=== PATIENT | male | born 1955 | race Caucasian/White ===

== ENCOUNTER → 2018-03-23 11:30 | Outpatient (CLI) | payer OTHER, SELFPAY ==
[2018-03-23 13:09] LABS: INR 1.4 (0.9-1.3); Prothrombin Time 15.6 SECONDS (10.1-12.7)
== END ==
PROVIDERS: PCP Family Medicine; Visit Provider Family Medicine
DX: Z79.01 Long term (current) use of anticoagulants (principal)
CPT/HCPCS: 36415; 85610

== ENCOUNTER → 2018-03-28 14:08 | Outpatient (CLI) | payer OTHER, SELFPAY ==
--- NOTE | 2018-03-28 | DI.CT.S_ITS ---
PROCEDURE: CT KIDNEY URETER BLADDER (KUB) INDICATIONS: 62 year-old male with right flank pain. TECHNIQUE: Noncontrast 5 mm thick sections acquired from the diaphragms to the symphysis. 5 mm thick coronal and sagittal reformats were then performed. For radiation dose reduction, the following was used: automated exposure control, adjustment of mA and/or kV according to patient size. COMPARISON: Outside Film, CT, CT ABDOMEN PELVIS WITH CONTRAST, 11/23/2017, 10:18. Outside Film, CT, CT ABDOMEN PELVIS WITH/WITHOUT CONTRAST, 07/26/2017, 8:25. [facility], CT, ABDOMEN/PELVIS WITH CONTRAST, 01/07/2017, 12:59. FINDINGS: Image quality: Excellent. Lung bases: Lung bases are clear. Heart size is normal. Urinary system: Both kidneys are normal in size, with the inferior right renal cortical scarring as before. No kidney stones. No hydronephrosis or perinephric fat stranding. Both ureters appear non-dilated throughout their expected courses. Previously noted proximal right ureteral stone is no longer present. Bladder wall thickness is normal; no calcified bladder stones. Other solid organs: Liver is normal in size. Gallbladder wall thickness is normal. Pancreas is normal in contours. Spleen is normal in size. No adrenal nodules. Peritoneum and bowel: Unenhanced bowel loops demonstrate normal wall thickness and caliber. No free fluid or air. Nodes and vessels: No retroperitoneal or mesenteric adenopathy by size criteria. Aorta and inferior vena cava are normal in caliber, with mild aortoiliac atherosclerosis. Abdominal wall: No ventral hernias. Pelvis: No free pelvic fluid. No inguinal hernias or adenopathy. Bones: No suspicious bony lesions. Incidental medial left iliac bone island is unchanged, measuring 1180 Hounsfield units in density. Additional small left femoral head and neck bone island is also unchanged. No vertebral body compression fractures. IMPRESSION: 1. No imaging explanation for right flank pain. Note no kidney stones or hydronephrosis. 2. Inferior right renal cortical scarring as before, consistent with remote pyelonephritis and/or vesicoureteral reflux. Dictated by: El Gutierrez M.D. on 03/28/2018 at 15:09 Approved by: El Gutierrez M.D. on 03/28/2018 at 15:19
== END ==
PROVIDERS: Family Provider Family Medicine; PCP Family Medicine; Visit Provider Urology
DX: R10.9 Unspecified abdominal pain (principal)
CPT/HCPCS: 74176

== ENCOUNTER → 2018-08-28 08:56 | Outpatient (CLI) | payer OTHER, SELFPAY ==
--- NOTE | 2018-08-28 | DI.MRI.S_ITS ---
PROCEDURE: MR KNEE LT WO CON INDICATIONS: OTHER TEAR OF MEDIAL MENISCUS LEFT KNEE TECHNIQUE: Noncontrast sagittal PD fast spin echo and T2 fast spin echo with fat saturation, sagittal 3-D FLASH with fat saturation; coronal T1 spin echo and PD fast spin echo with fat saturation, and axial PD fast spin echo with fat saturation through the knee. COMPARISON: [facility], MR, KNEE WITHOUT CONTRAST, 03/29/2016, 18:04. FINDINGS: Image quality: Excellent. Menisci: Lateral meniscus appears intact. Medial meniscal tear involving the body and posterior horn with abnormal signal extending to the undersurface. Cruciate ligaments: The anterior and posterior cruciate ligaments appear intact. The Medial structures: The medial collateral ligament appears thickened and there is mild soft tissue edema although this is less conspicuous compared to 03/29/16 and previously seen adjacent parameniscal cyst is no longer visualized. The posterior oblique ligament, semimembranosus tendon insertions, oblique popliteal ligament, and meniscocapsular junction appear intact. Mild fluid adjacent to the insertion of the pes anserinus tendon suggesting bursitis, which appears progressed/new since the prior study. Lateral structures: The lateral collateral ligament, long and short heads of the biceps femoris tendon appear intact. The popliteus tendon appears normal; the popliteofibular ligament appears intact. The posterosuperior and anteroinferior popliteomeniscal fascicles appear intact. The arcuate and fabellofibular ligaments appear intact, on either side of the lateral inferior geniculate artery. Iliotibial band appears normal. Anterior structures: The quadriceps and patellar tendons appear intact although there is mild diffuse patellar internal signal change suggesting low-grade tendinopathy. Patellar alignment is normal. No femoral trochlear dysplasia or ventral trochlear prominence. No edema in the infrapatellar fat pad. Bones and cartilage: No bone marrow contusions or fractures. Within the medial compartment, diffuse mild partial thickness loss of the femoral and tibial cartilage without focal defect. Within the lateral compartment, the articular cartilage appears grossly intact. Within the patellofemoral compartment, mild surface fraying of the cartilage overlying the lateral patellar facet. Joint space: No pathologic joint effusion. No Downing's cyst is identified. No intra-articular loose body seen. IMPRESSION: Pes anserinus bursitis, which has developed since prior study. Insertional semimembranosus tendinopathy, which appears progressed. Redemonstration of chronic medial meniscal tear involving the body and posterior horn. Resolution of previously seen parameniscal cyst Probable reactive changes/edema adjacent to the medial collateral ligament versus low-grade MCL sprain. This appears less conspicuous since prior study as discussed above. Mild degenerative joint disease (unchanged). Mild patellar tendinopathy Dictated by: Osman Peterson M.D. on 08/28/2018 at 10:37 Approved by: Osman Peterson M.D. on 08/28/2018 at 10:54
== END ==
PROVIDERS: PCP Family Medicine; Visit Provider Orthopaedic Surgery
DX: M23.222 Derangement of posterior horn of medial meniscus due to old tear or injury, left knee (principal); M70.52 Other bursitis of knee, left knee; M17.12 Unilateral primary osteoarthritis, left knee
CPT/HCPCS: 73721

== ENCOUNTER → 2018-09-05 10:26 | Outpatient (CLI) | payer OTHER, SELFPAY ==
[2018-09-05 11:07] LABS: Add Manual Diff / Slide Review NO; Basophils Percent Auto 0.6 % (0-2); Eosinophils Percent Auto 6.7 % (2-4); Hematocrit 40.1 % (41-53); Hemoglobin 13.6 g/dL (13.5-17.5); Lymphocytes Percent Auto 34.4 % (25-40); Mean Corpuscular Hemoglobin 28.7 PG (26-34); Mean Corpuscular Volume 84.4 fL (80-100); Monocytes Percent Auto 10.4 % (3-14); Neutrophils Absolute Auto 2100 /uL (3000-5900); Neutrophils Percent Auto 47.9 % (50-75); Platelet Count 158 X10^3/uL (150-400); Red Blood Cell Count 4.75 X10^6/uL (4.5-5.9); White Blood Cell Count 4.4 X10^3/uL (4.5-11.0)
[2018-09-05 11:24] LABS: Appearance Urine UA CLEAR; Bilirubin Urine UA NEGATIVE (NEGATIVE); Color Urine UA YELLOW; Glucose Urine UA NEGATIVE (Normal); Ketones Urine UA NEGATIVE (NEGATIVE); Leukocyte Esterase Urine UA NEGATIVE (NEGATIVE); Nitrite Urine UA NEGATIVE (Negative); Occult Blood Urine UA NEGATIVE (Negative); Protein Urine UA NEGATIVE (Negative); Urobilinogen Urine UA 0.2 E.U./dL (0.2)
[2018-09-05 12:59] LABS: Blood Urea Nitrogen 25 mg/dL (9-20); Carbon Dioxide 31 mmol/L (22-32); Chloride 102 mmol/L (98-107); Estimated Glomerular Filt Rate > 60.0 mL/min (>60); Glucose 74 mg/dL (80-110); HEMOLYSIS < 15 (0-50); Potassium 4.7 mmol/L (3.4-5.1); Sodium 142 mmol/L (137-145)
[2018-09-05 20:09] LABS: Hemoglobin A1C% w Est Avg Glu 5.3 % (4.0-6.0)
[2018-09-05 20:18] LABS: Transferrin 257 mg/dL (206-381)
== END ==
PROVIDERS: Family Provider Family Medicine; PCP Family Medicine; Visit Provider Orthopaedic Surgery
DX: M25.562 Pain in left knee (principal); Z01.812 Encounter for preprocedural laboratory examination; D50.0 Iron deficiency anemia secondary to blood loss (chronic); Z13.1 Encounter for screening for diabetes mellitus; N39.0 Urinary tract infection, site not specified; Z01.818 Encounter for other preprocedural examination; E11.9 Type 2 diabetes mellitus without complications; I10 Essential (primary) hypertension
CPT/HCPCS: 80048; 81003; 83036; 84466; 85025; 93005

== ENCOUNTER 2018-10-22 08:20 | Day surgery (SDC) | payer OTHER, SELFPAY ==
[2018-10-01 10:04] VITALS: BMI 29.8
[2018-10-22] VITALS (10 sets, daily range): BP systolic 111–159; BP diastolic 62–82; PULSE 62–104; RESP 11–20; TEMP 36.6–36.7; O2SAT 91–98; BMI 29.8
--- NOTE | 2018-10-22 06:00 | DI.RAD.S_ITS ---
PROCEDURE: XR KNEE LT 1TO2V INDICATIONS: post op films TECHNIQUE: 2 view(s) of the knee acquired. COMPARISON: None. FINDINGS: Bones: Patient is status post left medial femoral-tibial compartment arthroplasty. Hardware components are in expected positions. Visualized bony structures are intact. Soft tissues: Overlying postoperative changes are noted. IMPRESSION: Post left medial femoral-tibial compartment arthroplasty changes with anatomic left knee alignment. Dictated by: Derek Andersen M.D. on 10/22/2018 at 13:43 Approved by: Derek Andersen M.D. on 10/22/2018 at 13:43
[2018-10-22] MEDS: ACETAMINOPHEN 325 MG TABLET 975 MG PO (08:58)
[2018-10-22] MEDS: PREGABALIN 75 MG CAPSULE PO (09:00)
[2018-10-22] MEDS: LACTATED RINGERS 1,000 ML 42 ML IV ×2 (09:31→11:15)
--- NOTE | 2018-10-22 10:03 | PM.PREOP ---
Pre-operative Note Interval Note Pre-op Check: Yes History & Physical Reviewed by Physician and Yes Exam Performed Changes: No
[2018-10-22] MEDS: CEFAZOLIN 2 GM/100 ML FROZ.PIGGY IV (10:42)
--- NOTE | 2018-10-22 10:57 | SUR.OPER ---
Supine on padded OR bed. Pillow under head, arms secured on padded armboards <90 degree abduction. Safety belt across torso. Non-operative leg secured with tape over blanket over lower leg. Operative leg secured in [place].
[2018-10-22] MEDS: BUPIVACAINE 0.25% W/ EPI VIAL 60 ML INJ (11:01)
[2018-10-22] MEDS: BUPIVACAINE LIPOSOME 266 MG/20 ML VIAL INJ (11:02)
[2018-10-22] MEDS: MORPHINE 4 MG/ML INJ INJ (11:03)
--- NOTE | 2018-10-22 12:11 | P.OP_ITS ---
Operative Date/Time/Diagnoses Date of procedure: 10/22/18 Time of procedure: 11:45 Pre-op diagnosis: Left knee osteoarthritis Post-op diagnosis: same Procedure & Clinicians Procedure: Left medial unicompartmental arthroplasty Same procedure as scheduled: Yes Indications: The patient has had progressively worsening left knee pain with radiographic changes consistent with arthritis. Non-operative management has failed and the patient has requested partial knee replacement. The risks, benefits and alternatives to surgery were discussed with the patient prior to proceeding. Risks discussed included, but were not limited to, failure to relieve pain, stiffness, infection, nerve damage, deep venous thrombosis, pulmonary embolism, stroke, coma, heart attack, permanent paralysis and , as well as the potential need for eventual revision of the prosthetic. Surgeon: Emmanuel Alegre Donor Recruitment Manager: [place] Pared[place] Click Yes if Unassisted: No Anesthesia Type: General and Local Operative Notes Findings: Moderately severe medial compartment osteoarthritis. Closure Type: primary Specimen(s): none sent Implants & Drains: Implants used in this procedure were manufactured by the [employer] for the [employer]. These included a ZUK partial knee system with a size D left medial femoral component, a size 4 left medial tibial component and a 10 mm size 4 tibial insert. Applied: implant(s) Estimated Blood Loss (mL): 25 Blood products transfused: none Tourniquet time (min): 51 Procedure in detail: The patient was seen in the preoperative area where he identified the left knee as the operative site and this was marked with my initials. He received preoperative antibiotics with an appropriate 1st generation cephalosporin. He was taken to the operating room and placed on the operating room table in a supine position where he underwent induction with general anesthetic. Following onset of satisfactory general anesthesia a tourniquet was placed about his proximal left thigh and the left leg was prepared from the toes to the tourniquet with ChloraPrep in the usual fashion and draped through sterile drapes. Prior to an incision a federal mediation commissioner-out was performed. The leg was elevated and exsanguinated with an Esmarch bandage. The tourniquet was inflated to 250 mm of mercury. The medial aspect of the knee was approached through an approximately 8 cm incision from the tibial tubercle to the proximal medial corner of the patella. This was carried into the knee through a mid vastus arthrotomy. The medial meniscus was excised. Part of the fat pad was also excised to improve visualization. The linked cutting guide was used to make the distal femoral and proximal tibial cuts. Femur was sized and a size D appeared appropriate. The appropriate cutting guide was applied and the lug holes drilled followed by cutting the jam for and posterior cuts. The proximal tibia was then sized. The trial tibia was placed in the lug holes drilled. A trial tibial insert was placed as was a trial femoral component. With the noted components in place the knee had 0-135 degrees range of motion with mild laxity in flexion compared to extension. Using a 2 mm spacer in addition to the trial insert the ligaments were taut. This was felt to be satisfactory. The trials were removed. The bone was treated with pulsatile lavage and dried. Cement was impacted onto the bone and the prosthetics placed. Excess cement was removed during and after cement curing. The final tibial insert was then placed. Range of motion was confirmed as was ligamentous stability. The wound was copiously irrigated with sterile saline solution. It should be noted that the posterior capsule as well as the anterior capsule and skin were injected with a total of 60 mL 0.25% Marcaine with epinephrine, 20 mL of Exparel and 4 mg of morphine. The tourniquet was deflated at a total tourniquet time of 51 min and hemostasis obtained with electrocautery. Closure was obtained with interrupted 1. Ethibond in the joint layer with 0 Vicryl in the extension into the muscle. Subcutaneous layers closed with 3 O Vicryl the skin with a running 3 0 V lock suture and Steri-Strips. An Aquacel dressing was applied. The patient was then transferred to the recovery room in good condition having tolerated the procedure well. Complications: none Condition: stable Disposition: PACU Plan for aftercare: The patient will be discharged today. He has physical therapy arranged and will be seen in my office follow-up in 2 weeks.
[2018-10-22] MEDS: HYDROMORPHONE 2 MG INJ 0.5 MG IV ×4 (12:22→12:44)
--- NOTE | 2018-10-22 12:37 | SUR.PHASEI ---
arrived with LMA, removed by dr gutierres soon after arrival top pacu. c/o pain, being treated with Dilaudid.
[2018-10-22] MEDS: fentaNYL 100 MCG/2 ML INJ 50 MCG IV ×2 (12:46→12:54)
[2018-10-22] MEDS: HYDROMORPHONE 2 MG TABLET PO (12:58)
== END 2018-10-22 14:12 | disposition home or self-care (01) ==
PROVIDERS: Family Provider Family Medicine; PCP Family Medicine; Visit Provider Orthopaedic Surgery
PROC: (CPT 27446; principal; 2018-10-22 10:15)
DX: G47.30 Sleep apnea, unspecified (principal); M17.12 Unilateral primary osteoarthritis, left knee; R25.8 Other abnormal involuntary movements; F41.9 Anxiety disorder, unspecified; I10 Essential (primary) hypertension; E78.5 Hyperlipidemia, unspecified; Z86.718 Personal history of other venous thrombosis and embolism; Z86.711 Personal history of pulmonary embolism; G89.4 Chronic pain syndrome; F11.90 Opioid use, unspecified, uncomplicated
CPT/HCPCS: 27447; 73560; C1776; C9290; J0690; J1100; J1170; J2270; J2405; J2704; J3010

== ENCOUNTER 2019-01-23 15:27 | Emergency (ER) | payer OTHER, SELFPAY ==
[2019-01-23 15:30] VITALS: BP 161/85; PULSE 59; RESP 20; TEMP 36.1; O2SAT 96; BMI 30.4
--- NOTE | 2019-01-23 15:36 | DI.US.S_ITS ---
PROCEDURE: US PERIPH VENOUS LOW EXTREM LT INDICATIONS: pain behind L knee TECHNIQUE: Real-time imaging, as well as color and pulse Doppler interrogation, were performed of the lower extremity deep veins from the inguinal ligament to the popliteal fossa. COMPARISON: None. FINDINGS: The common femoral, femoral and popliteal veins are normally compressible, and free of intraluminal thrombus. Color and pulse Doppler demonstrate normal phasic intraluminal flow. There is normal augmentation response to distal compression maneuver. IMPRESSION: No evidence of deep venous thrombosis Dictated by: Osman Peterson M.D. on 01/23/2019 at 16:12 Approved by: Osman Peterson M.D. on 01/23/2019 at 16:13
--- NOTE | 2019-01-23 17:08 | ED.EXTPRO ---
HPI - Extremity Problem General Chief complaint: Extremity Problem,Nontraumatic Stated complaint: PAINFUL L KNEE REPLACEMENT Time Seen by Provider: 01/23/19 16:56 Source: patient and family Mode of arrival: ambulatory Limitations: no limitations History of Present Illness HPI Narrative: Patient presents to the emergency department complaining of left knee plain that started yesterday after his knee gave out while walking. Patient is status post partial knee replacement on October 22, and states he has not had to use a walker since October. However, the patient had to use a walker today, because he states that it hurt to walk on the knee, and he had a hard time getting out of bed because of it. Patient states he has been able to ambulate with a walker, but his range of motion is greatly decreased and he has noticed a recurrence of swelling in the knee. Patient states that when he fell, he did not strike the knee, and did not feel a pop or a snap. He has noticed some swelling the posterior aspect of the knee. He states his pain is mostly on the lateral aspect. Patient denies redness or fever. He has a history of DVT and PE when he was admitted for to the hospital for a week last year. Patient denies chest pain or shortness of breath currently. He denies any pain in his left lower extremity prior to his knee giving out yesterday. Related Data Home Medications Medication Instructions Recorded Confirmed [STOOL STOFTENER] 1 cap PO TID #0 07/10/17 10/09/18 cholecalciferol (vitamin D3) 2,000 unit PO BID #0 07/10/17 10/09/18 [Vitamin D3] morphine [MS Contin] 15 mg PO Q8H #0 07/10/17 10/22/18 morphine 15 mg PO PRN PRN #0 11/28/17 10/22/18 vitamin B complex tablet 1 tab PO DAILY 03/06/18 10/09/18 lidocaine 1 applictn TOP BID PRN 10/01/18 10/09/18 Previous Rx's Medication Instructions Recorded clotrimazole-betamethasone 1 1 applictn TOP BID #15 gram 09/19/18 %-0.05 % topical cream doxazosin 8 mg tablet 8 mg PO HS #90 tab 09/19/18 duloxetine 30 mg capsule,delayed 60 mg PO QDAY #180 cap 09/19/18 release metoprolol tartrate 25 mg tablet 25 mg PO BID #180 tab 09/19/18 miconazole nitrate 2 % topical 1 applictn TOP BID #57 gram 09/19/18 cream hydromorphone 2 mg PO Q3H PRN #40 tab 10/22/18 hydromorphone 2 mg PO Q3H PRN #40 tab 10/22/18 baclofen 10 mg tablet 10 mg PO QID #360 tab 11/05/18 finasteride 5 mg tablet 5 mg PO HS #90 tab 11/05/18 adjuvant AS01B (PF), component 0.5 ml IM ONCE #0.5 ml 11/12/18 vial 1 of 2 intramuscular suspension pneumococcal 13-taj conj 0.5 ml IM ONCE #0.5 ml 11/12/18 vaccine-dip crm (PF) 0.5 mL IM syringe gabapentin 400 mg capsule 400 mg PO QID #360 cap 12/12/18 omeprazole 20 mg tablet,delayed 20 mg PO BID #180 tab 12/12/18 release Allergies Allergy/AdvReac Type Severity Reaction Status Date / Time venom-honey bee Allergy Severe ANAPHYLACTIC Verified 10/09/18 16:04 [BEE VENOM (HONEY BEE)] REACTION (BUMBLE BEE) Review of Systems Constitutional Denies chills, Denies fever(s), Denies lethargy and Denies weakness Eyes Denies change in vision, Denies eye discharge, Denies irritation and Denies loss of vision ENT Ears, Nose, Mouth, and Throat: Denies change in voice, Denies neck pain and Denies sore throat Cardiovascular Denies chest pain, Denies irregular heart rhythm, Denies lightheadedness, Denies palpitations, Denies dyspnea, Denies dyspnea on exertion and Denies orthopnea Respiratory Denies cough, Denies dyspnea, Denies dyspnea on exertion and Denies wheezing Gastrointestinal Gastrointestinal: Denies abdominal pain, Denies change in bowel habits, Denies diarrhea, Denies nausea and Denies vomiting Genitourinary Denies hematuria, Denies flank pain, Denies urinary incontinence and Denies urinary urgency Musculoskeletal Reports joint swelling (Left knee, with arthralgia), Reports limited range of motion (Left knee) and Denies neck pain Integumentary/Breasts Denies pruritus, Denies erythema, Denies rash and Denies wounds Neurologic Denies confusion, Denies loss of vision and Denies weakness Psychiatric Denies anxiety, Denies confusion, Denies depression, Denies homicidal ideation and Denies suicidal ideation Endocrine Denies palpitations Hematologic/Lymphatic Denies easy bruising Allergic/Immunologic Denies wheezing [facility] Medical History History of fall (Acute) Acute medial meniscus tear of left knee (Acute) Cholecystitis (Acute) Disc disease with myelopathy, lumbar (Acute) History of EKG (Acute) History of bleeding ulcers (Acute ~1990) History of migraine (Acute) History of pyelonephritis (Acute) History of sepsis (Acute ~11/2017) Neuropathy of both upper extremities (Acute) Pulmonary emboli (Acute ~12/15/17) Tinea corporis (Acute) Tinnitus (Acute) Weight loss, intentional (Acute) Anxiety (Chronic) BPH (benign prostatic hyperplasia) (Chronic) Chronic back pain (Chronic) Chronic neck pain (Chronic) Depression (Chronic) GERD (gastroesophageal reflux disease) (Chronic) Gout (Chronic) Hyperlipemia (Chronic) Hypertension (Chronic) Sleep apnea (Chronic) Plantar fasciitis (Resolved) Urethral stone (Resolved ~11/2017) Surgical History History of laminectomy (Acute) History of meniscectomy of left knee (Acute) History of orchiectomy (Acute ~06/2016) History of mandibular surgery (Resolved) History of surgery on arm (Resolved) Hx of Achilles tendon repair (Resolved) Hx of eye surgery (Resolved) Hx of knee surgery (Resolved) Hx of neck surgery (Resolved) Hx of shoulder surgery (Resolved) Hx of thumb surgery (Resolved) History of vasectomy Status post appendectomy Family History (Updated 04/14/15 @ 00:00 by Conversion Provider) Brother Heart disease Father Heart disease Mother Heart disease Diabetes mellitus High cholesterol Sister Heart disease Sister Heart disease Social History household members: spouse Smoking Status: Never smoker second hand exposure: No alcohol intake: former substance use type: does not use Family History Brother Heart disease Father Heart disease Mother Heart disease Diabetes mellitus High cholesterol Sister Heart disease Sister Heart disease Social History household members: spouse Smoking Status: Never smoker second hand exposure: No alcohol intake: former substance use type: does not use Exam Initial Vital Signs Initial Vital Signs: Vital Signs Temperature 96.9 F L 01/23/19 15:30 Pulse Rate 59 L 01/23/19 15:30 Respiratory Rate 20 01/23/19 15:30 Blood Pressure 161/85 H 01/23/19 15:30 Pulse Oximetry 96 01/23/19 15:30 Const General: cooperative and well developed Nutritional Appearance: well nourished Orientation: alert, awake, oriented x3 and not confused [facility] Head: normocephalic and atraumatic Ears: external ears normal Nose: external nose normal and No nasal discharge Face and sinus: face symmetric and No dry mucous membranes Mouth: oral mucosae normal and moist mucous membranes Teeth and gingiva: dentition normal Eyes General: appearance normal, both eyes and all related structures Eyelids: eyelids normal Conjunctivae: conjunctivae normal Sclera: sclerae normal Pupils: PERRL EOM: EOM intact bilaterally Neck Neck: normal visual inspection, trachea midline, No lymphadenopathy, No midline deformity and No JVD Lymphatic: No lymphedema Chest Chest: normal inspection of the chest Resp Effort & Inspection: normal respiratory effort, able to speak in complete sentences, no respiratory distress and no use of accessory muscles Back/Spine/Pelvis Back: No CVA tenderness Cervical Spine: cervical ROM normal and No pain with cervical ROM Thoracic/Lumbar Spine: thoracic and lumbar spine normal to inspection Skin General: no rashes or lesions noted, No jaundice and No petechiae Rashes: no rashes Other: No erythema Neuro General: alert, oriented x3, gait normal and no focal motor deficits Speech: speech normal Extrem General: no pedal edema and no calf tenderness Left lower extremity: knee Details: tenderness, swelling and abnormal ROM; no abrasions, no lacerations, no ecchymosis and no unusual warmth (No erythema) Psych Appearance: well kempt Mental Status: mental status grossly normal Attitude: cooperative Thought Content: normal and suicidality Judgment: judgment good Course Course Narrative: Patient was worked up with a lower extremity ultrasound, which was negative, as well as a left knee x-ray series, which was also negative. I discussed with the patient that in the event of both studies be negative, he should consider wearing his articulating knee brace for the next several days to provide extra support to the knee. The patient has declined any analgesia be on the [id number] analgesics he has at home and his chronic morphine. I have discussed with him that if his symptoms do not improve in the next week or so, he should follow up with Dr. Alegre for further evaluation. Patient and are agreeable to this plan. Orders Ordered: ED Orders 01/23/19 15:36 US periph venous low extrem lt Stat 01/23/19 17:07 XR knee LT 3V Stat Vital Signs - 8 hr 01/23/19 15:30 01/23/19 18:15 Temperature 96.9 F L Pulse Rate 59 L 54 L Respiratory Rate 20 16 Blood Pressure 161/85 H Blood Pressure [Left Arm] 129/71 Pulse Oximetry 96 94 MDM - Extremity (Nontraumatic) Imaging Data Knee x-ray: Radiologist's impression: [address] [address] XRay Report Signed Patient: Arley Mathews LMR#: [id number] : 6Acct:[id number] Age/Sex: 63 / MDate of Service: 01/23/19 Loc: ED Accession Number: [id number] Procedure: XR knee LT 3V Ordering Provider: Brenda Gallego MD PROCEDURE: XR KNEE LT 3V INDICATIONS: knee injury, pain, s/p partial replacement TECHNIQUE: 3 views of the knee were acquired. COMPARISON: [facility], , XR KNEE LT 1TO2V, 10/22/2018, 12:46. FINDINGS: Bones: Postoperative changes are identified related to a medial compartment hemiarthroplasty. A metallic prosthetic components are properly seated without periprostatic fracture or lucency. Slight sclerosis and minimal central lucency along the medial tibial spine is evident, which in retrospect probably was present on the prior study and probably demonstrates a healing osteotomy defect. No acute fracture or dislocation is evident. Soft tissues: There is a prominent knee joint effusion joint effusion. No suspicious soft tissue calcifications. IMPRESSION: 1. Expected postoperative changes related to a medial compartment hemiarthroplasty. 2. No acute fracture or dislocation is evident. 3. Prominent knee joint effusion. Dictated by: New Koehler M.D. on 01/23/2019 at 16:46 Approved by: New Koehler M.D. on 01/23/2019 at 16:47 Venous US: Radiologist's impression: PROCEDURE: US PERIPH VENOUS LOW EXTREM LT INDICATIONS: pain behind L knee TECHNIQUE: Real-time imaging, as well as color and pulse Doppler interrogation, were performed of the lower extremity deep veins from the inguinal ligament to the popliteal fossa. COMPARISON: None. FINDINGS: The common femoral, femoral and popliteal veins are normally compressible, and free of intraluminal thrombus. Color and pulse Doppler demonstrate normal phasic intraluminal flow. There is normal augmentation response to distal compression maneuver. IMPRESSION: No evidence of deep venous thrombosis Dictated by: Osman Peterson M.D. on 01/23/2019 at 16:12 Approved by: Osman Peterson M.D. on 01/23/2019 at 16:13 Discharge Plan Departure Patient Disposition: Home Clinical Impression: Left knee sprain Qualifiers: Encounter type: initial encounter Involved ligament of knee: unspecified ligament Qualified Code(s): S83.92XA - Sprain of unspecified site of left knee, initial encounter Discharge Date/Time: 01/23/19 18:33 Interventions: ED Discharge Assessment Last Done: 01/23/19 18:32 Instructions: DI for Knee Sprain Activity Restrictions/Additional Instructions: Your ultrasound and x-ray series both look good. You have most likely sprained your knee, which is more prone to inflammation, since you have just had surgery. You may wear your brace again, as needed. If your symptoms do not improve over the next week, you should follow up again with Dr. Alegre. Prescriptions: No Action vitamin B complex [B Complex-Vitamin B12] tablet 1 tab PO DAILY RF: 0 morphine [MS Contin] 15 MG tablet extended release 15 mg PO Q8H Qty: 0 RF: 0 cholecalciferol (vitamin D3) [Vitamin D3] 2,000 UNIT capsule 2,000 unit PO BID Qty: 0 RF: 0 [STOOL STOFTENER] 1 cap PO TID Qty: 0 RF: 0 morphine 15 MG tablet 15 mg PO PRN PRN (Reason: Pain) Qty: 0 RF: 0 clotrimazole-betamethasone [Lotrisone] 1-0.05 % cream 1 applictn TOP BID Qty: 15 RF: 0 duloxetine [Cymbalta] 30 mg capsule,delayed release(DR/EC) 60 mg PO QDAY Qty: 180 RF: 1 doxazosin 8 mg tablet 8 mg PO HS Qty: 90 RF: 1 metoprolol tartrate 25 mg tablet 25 mg PO BID Qty: 180 RF: 1 miconazole nitrate [Antifungal Cream (miconazole)] 2 % cream 1 applictn TOP BID Qty: 57 RF: 0 baclofen 10 mg tablet 10 mg PO QID Qty: 360 RF: 0 finasteride 5 mg tablet 5 mg PO HS Qty: 90 RF: 0 pneumoc 13-taj conj-dip cr(PF) [Prevnar 13 (PF)] 0.5 mL syringe 0.5 ml IM ONCE Qty: 0.5 RF: 0 adjuvant AS01B (PF)vial 1 of 2 [Shingrix Adjuvant Component-PF] suspension 0.5 ml IM ONCE Qty: 0.5 RF: 0 omeprazole 20 mg tablet,delayed release (DR/EC) 20 mg PO BID Qty: 180 RF: 0 gabapentin [Neurontin] 400 mg capsule 400 mg PO QID Qty: 360 RF: 0 lidocaine 5 % ointment 1 applictn TOP BID PRN (Reason: Pain) RF: 0 hydromorphone 2 mg Tablet 2 mg PO Q3H PRN (Reason: Pain, Severe (7-10)) Qty: 40 RF: 0 hydromorphone 2 mg tablet 2 mg PO Q3H PRN (Reason: pain) Qty: 40 RF: 0 Referrals: Emmanuel Alegre MD [Physician] - Maira Sotomayor DO [Primary Care Provider] -
[2019-01-23 18:15] VITALS: BP 129/71; PULSE 54; RESP 16; O2SAT 94
== END 2019-01-23 18:33 | disposition home or self-care (01) ==
PROVIDERS: Emergency Provider Emergency Medicine; Family Provider Family Medicine; PCP Family Medicine
DX: S83.92XA Sprain of unspecified site of left knee, initial encounter (principal)
CPT/HCPCS: 73562; 93971; 99282; 99283

== ENCOUNTER → 2019-06-14 11:32 | Outpatient (CLI) | payer OTHER, SELFPAY ==
[2019-06-14 12:10] LABS: Appearance Urine UA CLEAR; Bilirubin Urine UA NEGATIVE (NEGATIVE); Color Urine UA YELLOW; Glucose Urine UA NEGATIVE (Negative); Ketones Urine UA NEGATIVE (NEGATIVE); Leukocyte Esterase Urine UA NEGATIVE (NEGATIVE); Nitrite Urine UA NEGATIVE (Negative); Occult Blood Urine UA NEGATIVE (Negative); Protein Urine UA NEGATIVE (Negative); Specific Gravity Urine UA 1.025 (1.000-1.035); Urobilinogen Urine UA 0.2 E.U./dL (0.2); pH Urine UA 5.5 (4.5-8.0)
[2019-06-14 12:23] LABS: Add Manual Diff / Slide Review NO; Basophils Absolute Auto 0 /uL (0-100); Basophils Percent Auto 0.4 % (0-2); Eosinophils Absolute Auto 300 /uL (0-450); Eosinophils Percent Auto 6.4 % (2-4); Hematocrit 40.8 % (41-53); Hemoglobin 13.8 g/dL (13.5-17.5); Lymphocytes Absolute Auto 1200 /uL (1100-4500); Lymphocytes Percent Auto 28.2 % (25-40); Mean Corpuscular HGB Conc 33.8 % (30-36); Mean Corpuscular Hemoglobin 29.3 PG (26-34); Mean Corpuscular Volume 86.6 fL (80-100); Monocytes Absolute Auto 500 /uL (0-900); Monocytes Percent Auto 10.8 % (3-14); Neutrophils Absolute Auto 2400 /uL (1500-7000); Neutrophils Percent Auto 54.2 % (50-75); Platelet Count 160 X10^3/uL (150-400); Red Blood Cell Count 4.71 X10^6/uL (4.5-5.9); White Blood Cell Count 4.4 X10^3/uL (4.5-11.0)
[2019-06-14 12:48] LABS: Alanine Aminotransferase 27 IU/L (21-72); Albumin Globulin Ratio 1.5 (1.0-2.8); Alkaline Phosphatase 56 U/L (38-126); Aspartate Aminotransferase 20 IU/L (17-59); Bilirubin Total 0.5 mg/dL (0.2-1.3); Blood Urea Nitrogen 20 mg/dL (9-20); Carbon Dioxide 34 mmol/L (22-32); Chloride 102 mmol/L (98-107); Cholesterol 248 mg/dL (140-199); Estimated Glomerular Filt Rate > 60.0 mL/min (>60); Globulin 2.6 g/dL (1.7-4.1); Glucose 77 mg/dL (80-110); HDL Cholesterol 55 mg/dL (40-60); HEMOLYSIS < 15 (0-50); LDL Cholesterol Calculated 166 mg/dL (<100); Potassium 4.7 mmol/L (3.4-5.1); Sodium 142 mmol/L (137-145); Total Protein 6.6 g/dL (6.3-8.2); Triglycerides 133 mg/dL (35-150)
[2019-06-14 15:45] LABS: Vitamin D 25 Hydroxy (D3) 61.6 ng/mL (30.0-100.0)
== END ==
PROVIDERS: PCP Family Medicine; Visit Provider Orthopaedic Surgery
DX: M48.062 Spinal stenosis, lumbar region with neurogenic claudication (principal); E55.9 Vitamin D deficiency, unspecified; I10 Essential (primary) hypertension; N40.0 Benign prostatic hyperplasia without lower urinary tract symptoms; Z51.81 Encounter for therapeutic drug level monitoring
CPT/HCPCS: 36415; 80053; 80061; 81003; 82306; 84443; 85025

== ENCOUNTER 2019-07-16 06:17 | Inpatient (IN) | payer OTHER, SELFPAY ==
[2019-07-10 14:45] VITALS: BMI 29.5
[2019-07-16] VITALS (20 sets, daily range): BP systolic 113–157; BP diastolic 70–91; PULSE 55–99; RESP 10–20; TEMP 36.1–37.1; O2SAT 92–97; BMI 29.5
--- NOTE | 2019-07-16 | DI.RAD.S_ITS ---
PROCEDURE: XR LUMBAR SPINE 1V INDICATIONS: L5-S1 LAMINECTOMY TECHNIQUE: 1 views of the lumbar spine were acquired. COMPARISON: [facility], CR, XR LUMBAR SPINE 2 OR 3 VIEWS, 03/27/2019, 13:43. FINDINGS: Intraoperative fluoroscopy image demonstrates a surgical probe posterior to L5-S1. IMPRESSION: Surgical probe at the level of L5-S1. Dictated by: Gregory Oviedo M.D. on 07/16/2019 at 14:39 Approved by: Gregory Oviedo M.D. on 07/16/2019 at 14:41
[2019-07-16] MEDS: LACTATED RINGERS 1,000 ML 42 ML IV (06:45)
--- NOTE | 2019-07-16 07:28 | PM.PREOP ---
Pre-operative Note Interval Note History & Physical reviewed/Exam performed by Physician: Yes Changes to H&P: No
[2019-07-16] MEDS: CEFAZOLIN 2 GM/100 ML FROZ.PIGGY IV ×2 (07:47→16:44)
--- NOTE | 2019-07-16 08:24 | SUR.OPER ---
Prone on spine table, head in foam head support, padded chest and pelvic supports, gel pad at knees, lower legs supported by pillows; nipples, genitalia and toes free of pressure, arms secured on foam padded arm boards at <90 degrees abduction. Tape over blanket at thigh secured to table.
[2019-07-16] MEDS: THROMBIN (RECOMBINANT) 5,000 UNIT VIAL 5000 UNIT TOP (08:35)
[2019-07-16] MEDS: SODIUM CHLORIDE 0.9% 1,000 ML, GENTAMICIN 80 MG IRR (08:35)
[2019-07-16] MEDS: VANCOMYCIN 1,000 MG VIAL 1000 MG TOP (08:36)
[2019-07-16] MEDS: BUPIVACAINE 0.5% (PF) 4 ML, MORPHINE-PF 4 MG, BUTORPHANOL 1 MG, fentaNYL 100 MCG INJ (08:39)
--- NOTE | 2019-07-16 09:41 | PM.OP.1 ---
Operative Date/Time/Diagnoses Date of procedure: 07/16/19 Time of procedure: 09:41 Pre-op diagnosis: Lumbar stenosis with radiculopathy Post-op diagnosis: same Procedure & Clinicians Procedure: L3-4 laminectomy L5-S1 laminectomy Use of microscope Placement of epidural catheter Same procedure as scheduled: Yes Indications: [age] year old male with intractable pain from stenosis with radiculopathy. They had failed conservative management and requested operative intervention. Risks and benefits of surgery were discussed and appropriate consents were obtained. Surgeon: Jamie Rivera [employer] Net Developer: La Paredes Anesthesia Type: General Operative Notes Findings: None Closure Type: primary Specimen(s): none sent Applied: catheter Estimated Blood Loss (mL): 30 Blood products transfused: none Procedure in detail: Patient was brought to the operating room and intubated on the table. They were rolled over on the well-padded prone position on the Nikita table. A time-out was performed. Preoperative antibiotics were given. The back was prepped and draped in standard sterile fashion. Using fluoroscopy for localization, a 6 cm incision was made in the midline. We used Bovie to dissect through the lumbodorsal fascia and then subperiosteally dissect the paraspinal muscles off the right side. A marker was placed and x-ray was taken to confirm positioning. We then brought in the microscope. Using a bur and Kerrison rongeurs and curette, a [id number] laminectomy and hemifacetectomy was performed at L5-S1. We undercut through the foramen until the nerve root was freed up as well as along the subarticular region and we could trace the L5 root easily the entire way out with plenty of room in the neural foramen. We then went up to the L3-4 level. Again a right-sided laminectomy was performed. We carefully depressed the dura and reached across to clear out the ligamentous and facet hypertrophy on the opposite side to decompress the entire central canal. We decompress the subarticular zone with a partial facetectomy. We then swept the dura medially until we could expose the disc. There did not appear to be much displacement of the disc at this point and no pressure on the nerves and we did not do any further disc work. We used a ball probe and everything appeared to be open centrally cephalad, caudally, and into the neural foramen. The wound was irrigated. An epidural catheter was prepared with 8 mL of 0.25% Marcaine and 100 mcg of fentanyl. The dura was carefully depressed and the catheter was advanced 6 cm cephalad underneath remaining lamina without resistance. The fascia was then closed in layers. The epidural catheter was injected without complications. Vancomycin powder was placed in the wound. The superficial and the skin were closed. Sterile dressing was placed. Patient was rolled over extubated brought to recovery room with no complications. Complications: none Post-operative Condition: stable Disposition: PACU Plan for aftercare: Overnight admission. Mobilize with physical therapy. Plan to discharge home tomorrow if doing well.
[2019-07-16] MEDS: POLYVINYL ALCOHOL DROPS 2 DROPS EYE-LEFT (10:26)
--- NOTE | 2019-07-16 10:30 | SUR.PHASEI ---
pt c/o left eye feels itchy. After observing left eye, left eye observed to appear irritated and slightly reddish. Dr. Owen gave verbal order for artificial tears in left eye. Artificial tears given per verbal order. Pt stated it feels better.
--- NOTE | 2019-07-16 10:49 | SUR.PHASEI ---
pt transferred to acute care floor in stable condition, vss. pt alert and talking to RN during transfer. bedside report given to ROCAEL Hair upon arrival to room. No change in pt condition, transferred care of pt to ROCAEL Hair at that time.
[2019-07-16] MEDS: KETOROLAC 30 MG/ML VIAL IV (11:36)
[2019-07-16] MEDS: LACTATED RINGERS 1,000 ML 125 ML IV (11:37)
[2019-07-16] MEDS: MORPHINE IR 15 MG TABLET PO (11:38)
[2019-07-16] MEDS: GABAPENTIN 400 MG CAPSULE PO ×3 (11:38→20:54)
[2019-07-16] MEDS: MORPHINE ER 15 MG TABLET PO ×2 (13:17→18:59)
[2019-07-16] MEDS: DULOXETINE 30 MG CAPSULE 60 MG PO (13:17)
[2019-07-16] MEDS: BACLOFEN 10 MG TABLET PO (13:17)
--- NOTE | 2019-07-16 14:00 | PT.IIE ---
Current Diagnoses Opioid dependence, uncomplicated (07/16/19) Spinal stenosis, lumbar region with neurogenic claudication (07/16/19) Surgery Performed Operation Date: 07/16/19 07:45 Actual Procedures p L3-4 & L5-S1 Laminectomies - Jamie Rivera MD Surgical History (Last Updated 07/10/19 @ 14:52 by Lianna Teresa, RN) History of laminectomy (Acute) History of mandibular surgery (Resolved) History of meniscectomy of left knee (Acute) History of orchiectomy (Acute ~06/2016) History of surgery on arm (Resolved) History of vasectomy Hx of Achilles tendon repair (Resolved) Hx of eye surgery (Resolved) Hx of knee surgery (Resolved) Hx of lithotripsy (Acute) Hx of neck surgery (Resolved) Hx of shoulder surgery (Resolved) Hx of thumb surgery (Resolved) Status post appendectomy Medical History (Last Reviewed 05/27/19 @ 10:37 by Maira Sotomayor DO) Acute medial meniscus tear of left knee (Acute) Anxiety (Chronic) BPH (benign prostatic hyperplasia) (Chronic) Cholecystitis (Acute) Chronic back pain (Chronic) Chronic neck pain (Chronic) Depression (Chronic) Disc disease with myelopathy, lumbar (Acute) GERD (gastroesophageal reflux disease) (Chronic) Gout (Chronic) History of bleeding ulcers (Acute ~1990) History of EKG (Acute) History of fall (Acute) History of migraine (Acute) History of pyelonephritis (Acute) History of sepsis (Acute ~11/2017) Hyperlipemia (Chronic) Hypertension (Chronic) Neuropathy of both upper extremities (Acute) Plantar fasciitis (Resolved) Pulmonary emboli (Acute ~12/15/17) Sleep apnea (Chronic) Tinea corporis (Acute) Tinnitus (Acute) Urethral stone (Resolved ~11/2017) Weight loss, intentional (Acute) Physical Therapy Inpatient Evaluation/Re-Eval M1 PT/OT-IP Prior Functional Status Start: 07/16/19 12:08 Freq: NEEDED Status: Active Protocol: Document 07/16/19 13:25 AW (Rec: 07/16/19 14:00 AW [id number]) Medical Review Prior Functional Status Medical History Reviewed Yes Diet/Fluid Consistency Regular Communication able to make needs known Mobility and Gait Pt was modified independent with all mobility using SPC and AFO for RLE. Following cervical laminectomy 10 years ago, pt had new onset right ankle clonus. With SPC and AFO , patient could walk up to 2 miles. Activities of Daily Living and IADL's Independent Social History Household Members spouse Living Arrangements House Number of Floors (Floors) One Floor Number of Stairs To Enter/Railing? ramped entry Home Environment High Toilet,Ramp Home Equipment Four Wheel Walker,Straight Cane,Shower Seat without Backrest,Hand Held Shower, Hospital Bed,Grab Bars In Shower Employment Status Retired Additional Social History Comment Pt lives with spouse who is available to assist as needed M2 PT-IP Current Condition Start: 07/16/19 12:08 Freq: NEEDED Status: Active Protocol: Document 07/16/19 13:25 AW (Rec: 07/16/19 14:00 AW [id number]) Physical Therapy Current Condition Current Condition Evaluation Date 07/16/19 Treatment Diagnosis s/p L3-4, L5-S1 lami, difficulty in walking Onset Date 07/16/19 Precautions Lumbar Precautions Log Roll,No Twisting,Limit Bending,Lifting Restriction of 10 lbs,Gait Belt above Incisional Area Other Precautions Pt typically uses AFO for RLE to compensate for R ankle clonus. Weight Bearing Status Weight Bearing Status Weight Bear as Tolerated M3 PT-IP Subjective Start: 07/16/19 12:08 Freq: NEEDED Status: Active Protocol: Document 07/16/19 13:25 AW (Rec: 07/16/19 14:00 AW [id number]) Subjective Physical Therapy Visit Type Type Initial Evaluation Visit Start Time 12:14 Visit Stop Time 12:50 Total Visit Minutes 36 Number of MEDICAID SERVICE COORDINATOR Visits 0 Physical Therapy Visit Comments Patient Comments Pt agreeable to participate with PT Patient Goals Pt hopes to return home tomorrow with spouse assist Therapy Pain Assessment Pain When Pain Assessed During Mobility Pain Present Pain Present Pain Reported Location Back Scale Used 4/10 at rest, 6/10 with mobility Pain Management Techniques Modification of Treatment, Timing of Activity with Medications M4 PT-IP Mobility and Gait Start: 07/16/19 12:08 Freq: NEEDED Status: Active Protocol: Document 07/16/19 13:25 AW (Rec: 07/16/19 14:00 AW [id number]) PT-Bed Mobility Assessment Rolling Type of Rolling Log Rolling Level of Assist Contact Guard Assistance Supine to Sit Supine to Sit Contact Guard Assistance Scooting Scooting to Edge of Bed Standby Assistance PT-Transfer Assessment Sit to and From Stand Sit to and from Stand Contact Guard Assistance, Minimal Assistance Equipment Transfer Assistive Device Gait Belt,Front Wheeled Walker Orthotic/Prosthetic Devices or Brace: No Transfers Transfer Destination Chair Transfer Technique pt ambulated using FWW Transfer Ability Level of Assist Contact Guard Assistance, Minimal Assistance Comments Mobility Comments Pt required CGA to min assist for sit to stand transfer using FWW Gait Assessment Gait Gait Assistance Required: Contact Guard Assist Distance (Feet) 20 Able to Maintain Weight Bearing Status Yes During Gait Assistive Devices Assistive Device Gait Belt,Front Wheeled Walker Orthotic/Prosthetic Devices or Brace: No Gait Deviations General Gait Pattern Antalgic,Decreased Stride Length,Decreased Feet Clearance Factors Limiting Gait Function Factors Limiting Gait Function Abnormal Tonal Influences, Decreased Activity Tolerance, Decreased Strength,Pain,Poor Balance Comments Gait Comments Pt required CGA to ambulate 20 feet in room using FWW. His right ankle clonus is evident with gait, interfering with balance. Pt and spouse attest that he normally walks with the AFO on, providing compensation for the clonus. Pt's spouse will bring AFO for future treatment sessions. PT-Balance Assessment Sitting Balance and Reactions Static Sitting Balance Ability Good Dynamic Sitting Balance Ability Good Standing Balance and Reactions Static Standing Balance Ability Good Dynamic Standing Balance Ability Fair Device Used FWW M5 PT-IP Objective Assessments Start: 07/16/19 12:08 Freq: NEEDED Status: Active Protocol: Document 07/16/19 13:25 AW (Rec: 07/16/19 14:00 AW [id number]) Orientation Orientation/Cognition Level of Alertness Alert Orientation Name,Date,Place,Situation Language Function Ability No Deficits Noted Safety Awareness Understands Safety Issues Memory Description No Deficits Noted Gross Range of Motion Upper Extremity ROM Assessment Within Functional Limits Lower Extremity ROM Assessment Within Functional Limits Strength Upper Extremity Strength Assessment Within Functional Limits Lower Extremity Strength Assessment Right Impaired Hip 4+/5 Knee 5/5 Ankle 4/5 Coordination Assessment Gross Coordination Gross Coordination WNL Sensation Assessment Sensation Gross Sensation WNL Muscle Tone Muscle Tone WNL No Muscle Tone Location Right Lower Extremity Type of Tone Clonus Severity of Tone Moderate Manifistation of Tone Fluctuation Comments Muscle Tone Comments 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 AFO provides compensation M6 PT-IP Treatment Start: 07/16/19 12:08 Freq: NEEDED Status: Active Protocol: Document 07/16/19 13:25 AW (Rec: 07/16/19 14:00 AW [id number]) Physical Therapy Treatment Education Education Provided Precautions,Weight Bearing Status,Post-Op Packet,Safety M7 PT-IP Assessment and Plan Start: 07/16/19 12:08 Freq: NEEDED Status: Active Protocol: Document 07/16/19 13:25 AW (Rec: 07/16/19 14:00 AW [id number]) PT Summary Assessment and Plan Potential Rehabilitation Potential Good Status of Condition at Evaluation Evolving Summary Impairments Pain,Strength,Balance,Tone,Bed Mobility,Transfers,Gait, Activity Tolerance Assessment Summary Pt is a 63 yo man seen on POD0 following L3-4, L5-S1 laminectomy. He has history of prior cervical laminectomy after which he presented with right ankle clonus. PLOF: Pt was modified independent with all mobility using SPC and AFO for RLE. CLOF: Pt presents with impaired bed mobility, transfers, and gait, requiring min assist for [id number] and CGA for ambulation 20 feet using FWW. Spouse will bring AFO from home for future treatment sessions, affording PT a more realistic sense of his current mobility. Pt will benefit from skilled PT to address these impairments and for discharge planning. At this time, PT recommends discharge to home with spouse assist when cleared by orthopedics. Pt would also benefit from outpatient PT. Goals Bed Mobility Goal Independent Transfer Goal Independent Gait Goal Independent,Front Wheel Walker Gait Distance 100 feet using FWW and AFO Days to Meet Goals 2 Frequency of Treatment Frequency Of Treatment Twice a Day Treatment Plan Physical Therapy Treatment Plan Bed Mobility Training,Transfer Training,Gait Training, Therapeutic Exercise,Balance Retraining,Post Op Education, Discharge Planning,Hot or Cold Pack,Neuromuscular Re-ed, Coordination Retraining,Manual Therapy Other Recommendations and Next Treatment Trial ambulation with AFO. Focus Progress gait distance. Recommendations To Nursing Amount of Assist Needed Standby Assistance,1 Person Assist Discharge Recommendations PT Discharge Recommendations Home with Assistance, Outpatient PT Other Discharge Recommendations FWW or 4WW at all times at least until follow up ortho appointment.
[2019-07-16] MEDS: DOCUSATE 100 MG CAPSULE PO (20:54)
[2019-07-16] MEDS: CHOLECALCIFEROL (VITAMIN D3) 1,000 UNIT TABLET 2000 UNIT PO (20:54)
[2019-07-16] MEDS: SENNOSIDES 8.6 MG TABLET 17.2 MG PO (20:54)
[2019-07-16] MEDS: METOPROLOL IR 25 MG TABLET PO (20:54)
[2019-07-16] MEDS: DOXAZOSIN 4 MG TABLET 8 MG PO (20:55)
[2019-07-16] MEDS: FINASTERIDE 5 MG TABLET PO (20:55)
[2019-07-16] MEDS: MORPHINE 2 MG/ML INJ IV (21:00)
[2019-07-17] VITALS (7 sets, daily range): BP systolic 117–167; BP diastolic 63–91; PULSE 63–73; RESP 14–16; TEMP 36.8–37.7; O2SAT 95–98
[2019-07-17] MEDS: hydrOXYzine pamoate 25 MG CAPSULE PO ×2 (00:29→08:30)
[2019-07-17] MEDS: MORPHINE 2 MG/ML INJ IV ×2 (00:29→03:29)
[2019-07-17] MEDS: CEFAZOLIN 2 GM/100 ML FROZ.PIGGY IV (00:30)
--- NOTE | 2019-07-17 00:40 | PC.NURSE ---
Senior Foreman Note: 0030: Awake, vital signs stable. Dressing to back cdi. IV in place in lt forearm, with LR infusing at 125cc/hr. Assisted to turn and reposition. Foot SCDs on. Pt having 7/10 pain and muscle spasms. Medicated with Morphine 2mg IV and Vistaril 25mg po.
[2019-07-17] MEDS: LACTATED RINGERS 1,000 ML 125 ML IV (03:25)
[2019-07-17] MEDS: MORPHINE ER 15 MG TABLET PO ×3 (05:45→21:16)
--- NOTE | 2019-07-17 06:07 | PM.PNPO.1 ---
Subjective Subjective Date Patient Seen: 07/17/19 Time Patient Seen: 06:07 Interval history: He is doing very well. Minimal sciatic pain. Back pain 3-4. Exam Vital Signs (past 8 hours): - 07/16/19 23:30 07/17/19 04:10 Temperature 98.7 F 98.2 F Pulse Rate 72 66 Respiratory Rate 17 16 Blood Pressure 129/70 134/69 Pulse Oximetry 97 95 Oxygen Delivery Method Room Air Oxygen Flow Rate 0 Const Orientation: alert and oriented x3 Back/Spine/Pelvis Other: CDI. 5/5 motor both lower extremities Assessment & Plan Post-op Postoperative Procedures: Procedures Operation Date: 07/16/19 07:45 Actual Procedures Side Surgeon p L3-4 & L5-S1 Laminectomies Jamie Rivera MD he is doing very well. Mobilize 1 more time with physical therapy then discharged home. He has pain medication already at home and does not feel like he needs a refill.
[2019-07-17 06:15] LABS: Hematocrit 36.4 % (41-53); Hemoglobin 12.1 g/dL (13.5-17.5)
[2019-07-17] MEDS: DULOXETINE 30 MG CAPSULE 60 MG PO (08:30)
[2019-07-17] MEDS: METOPROLOL IR 25 MG TABLET PO ×2 (08:30→21:15)
[2019-07-17] MEDS: DOCUSATE 100 MG CAPSULE PO ×2 (08:30→21:12)
[2019-07-17] MEDS: MORPHINE IR 15 MG TABLET PO ×2 (08:30→16:37)
[2019-07-17] MEDS: GABAPENTIN 400 MG CAPSULE PO ×4 (08:30→21:15)
[2019-07-17] MEDS: VITAMIN B COMPLEX 1 CAPSULE 1 CAP PO (08:30)
[2019-07-17] MEDS: CHOLECALCIFEROL (VITAMIN D3) 1,000 UNIT TABLET 2000 UNIT PO ×2 (08:30→21:12)
--- NOTE | 2019-07-17 09:08 | CM.DANOTE ---
Addendum entered by Brittany Walls LPN 07/18/19 08:37: [facility]/Diana and [facility] Sandra were both looking at process needed for snf auth under this insurance. It is unclear if this will need to be generated in the PCP office, as per on-line insurance info or if can be done at the snf level. [facility] She says she may need to access customer service, authorization telephone line. Addendum entered by Brittany Walls LPN 07/17/19 13:50: Spoke with PT/Bee and OT Brunilda after their session with pt and his Alejandra. Both report pt is NOT safe for a d/c to home setting today and are, at this time, recommending a snf stay. Met with pt and his Alejandra in followup. Alejandra clarifies more of their home situation and says she very much agrees that today he would not be safe for a d/c to home. She uses a cane because her balance is impaired after a surgery on her foot. She says she is recovered from the surgery but this is as good as it will get. She is able to provide supportive care but not physicial assist. She also says her took at major fall 2 weeks ago while working at a [employer] sale. He fell backwards with great force and hit everything. He has been very sore ever since. PT Bee notes some deficits pt has on L as well as R LEs and that his gait is not stable. Pt says he is disappointed. He does admit that when he had his spinal cervical surgery at [facility] in 2008 he went to [facility] for a month of rehab. At that point he was on Prime. Alejandra confirms his current plan: [employer] is under the [employer] umbrella. [facility] Supriya who is very familiar with the Insurances has agreed to research what will be needed for the authorization process, look at network facilities etc. Will be following. Pt does remain hopeful that he can go home if he improves in hospital over the next few days but this is far from certain. Will also wait for some direction from the orthopedic team. RN Violet and RN james Contreras are updated as the d/c will not be happening today. Original Note: Discharge Planning/Care Management DCP: assessment: case received, EMR reviewed and met with pt. Introduced self and role. Pt is a 63 year old male who admitted yesterday for a planned spinal surgery: Dr Rivera. PCP: Maira Sotomayor. Payer: Family Plan Pt was just talking over plan for day with OT Brunilda and PT Scott. They will be holding session until pt's Alejandra comes in later this morning so that she can be part of the caregiver training. She also is bringing his R AFO. Dr. Rivera did see pt very early today. Put in a d/c to home order. His progress note at that time says that pt does need to have more therapy today first. P: check in again prn after therapy. Pt is hopeful that he will be able to go as planned. Advanced directive, confirm from FAMILY Start: 07/16/19 11:53 Freq: Q24H Status: Active Protocol: Document 07/16/19 11:53 [facility] (Rec: 07/16/19 11:53 [facility] [id number]) Advance Directive, confirm on record Time 11:53 Person contacted spouse Copy received No CM Discharge Assessment Start: 07/17/19 09:05 Freq: Status: Active Protocol: Document 07/17/19 09:05 ITV (Rec: 07/17/19 09:08 ITV [id number]) Discharge Planning Assessment Advance Directives? Yes Advance Directives on File No History Provided By Patient,Medical Record Prior Living Arrangements House Comment ramp to entry Household Members spouse Independent with ADL's Yes Is patient alert and oriented? Yes DME Already Rented / Owned FWW / Walker,Cane,Other Comment has 4ww. uses single point cane with all mobility. has AFO R that uses at baseline is bringing this in today as part of caregiver training with OT/PT Whiteboard Updated in Patient Room with Yes name and ext. # of [employer] Review Status In Process Pre-Anesthesia Assessment Start: 07/10/19 14:45 Freq: Status: Complete Protocol: Document 07/10/19 14:45 CAB (Rec: 07/10/19 14:53 CAB [id number]) Pre-Anesthesia Assessment Patient Also Known As (SHARI) Arley or Titi Patient Information Reviewed Via Chart Review Comment Labs @ [facility] 06/17/19, outside EKG 06/14/19 scanned to record Primary Care Provider Maira Sotomayor Seen Specialist in Last 12 Months Yes Specialist Seen Orthopedist Primary Language Slovak Bootmaker Required No Height 177.8 cm Weight 93.44 kg Body Mass Index (BMI) 29.5 Hearing Ability Normal Visual Impairment Partially Limited Visual Assist Glasses Dentition Type Teeth, Natural Present Barriers to Learning None,Visual Other Aids No Hx Anesthesia Reactions No Hx Family Anesthesia Reaction No Hx Malignant Hyperthermia No Hx Blood Transfusions Yes: Bleeding Ulcer ' Hx Blood Transfusion Reaction No Anesthesia Review Requested No International Bank Manager No alcohol intake former Smoking Status Never smoker Substance Use Type does not use Pain Present Pain Reported Musculoskeletal Symptoms Abnormal Gait,Back Pain, Difficulty Walking,Joint Pain, Joint Stiffness,Joint Swelling ,Limited Range of Motion, Muscle Cramps,Muscle Spasms, Muscle Weakness,Neck Pain, Numbness,Radiating Pain into Limb,Tingling History of Falling (Recent or History of Yes ) Patient is completely paralyzed or No completely immobile Prosthesis or Orthotic Device Cane,Front Wheel Walker, Crutches Gait/Transferring Weak,Impaired Mental Status Oriented to own ability Is patient on oxygen? No Does patient have CARRERA/SOB Yes Hx Sleep Apnea Yes CPAP/BIPAP use prescribed and used routinely Currently Taking a Beta Devan Yes: Metoprolol Can You Climb a Flight of Stairs Without Yes SOB Hx Chest Pain Yes: PE 12/10, 10 yrs ago (w/u neg) Hx SOB Yes Hx Syncope or Dizziness No Anti-Coagulant Therapy No Has a Plastics Nurse No Cardiac Testing No Hx Pacemaker/ICD No Pacemaker Rep Required? No Cardiac Clearance Received Not Applicable Diet Type At Home Ketogenic dysphagia No Bladder Pattern Nocturia,Retention Urinary Catheter Present No Hx Urinary Self Catheterization No Comment Weak stream Diabetes No Hx Drug Resistant Organism No Presence of External or Internal Medical Yes: R ureteral stent, L uni Devices knee Marital Status Lives With spouse Prior Living Arrangements House Number of Floors (Floors) One Floor Support System Jemma/God,Friend(s),Spouse Patient Discharge Plan Description Home Health Feels Safe in Current Environment Yes Been Physically Hurt or Threatened By a No Person in Current Environment Do you have thoughts of harming yourself None or others? Are you currently considering suicide? No Do you have a plan to hurt yourself or No Plan others? Do You Have Any Spiritual Beliefs That No May Affect Your HC Choices? Do You Have Any Cultural Practices That No May Affect Your HC Choices? Comment Congregation Who Can We Speak to About Patient's Care Friends & Family Identifying Code for Release of Patient Previously declined to issue Information Health Care Proxy/Next of Kin Alejandra Mathews Health Care Proxy Emergency Contact Name Alejandraananth ZengElbing Emergency Contact Advance Directives? Yes Advance Directives on File No Power of Infectious Diseases Physician No
--- NOTE | 2019-07-17 11:20 | PT.IPTN ---
Current Diagnoses Opioid dependence, uncomplicated (07/16/19) Spinal stenosis, lumbar region with neurogenic claudication (07/16/19) Surgery Performed Operation Date: 07/16/19 07:45 Actual Procedures p L3-4 & L5-S1 Laminectomies - Jamie Rivera MD Physical Therapy Treatment Note M2 PT-IP Current Condition Start: 07/16/19 12:08 Freq: NEEDED Status: Active Protocol: Document 07/16/19 13:25 AW (Rec: 07/16/19 14:00 AW [id number]) Physical Therapy Current Condition Current Condition Evaluation Date 07/16/19 Treatment Diagnosis s/p L3-4, L5-S1 lami, difficulty in walking Onset Date 07/16/19 Precautions Lumbar Precautions Log Roll,No Twisting,Limit Bending,Lifting Restriction of 10 lbs,Gait Belt above Incisional Area Other Precautions Pt typically uses AFO for RLE to compensate for R ankle clonus. 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 Physical Therapy Visit Comments Patient Comments Pt agreeable to participate with PT Therapy Pain Assessment Pain When Pain Assessed During Mobility Pain Present Pain Present Pain Reported Location Back Scale Used 4/10 at rest, 6/10 with mobility Pain Management Techniques Modification of Treatment, Timing of Activity with Medications M4 PT-IP Mobility and Gait Start: 07/16/19 12:08 Freq: NEEDED Status: Active Protocol: Document 07/17/19 11:05 HH (Rec: 07/17/19 11:19 [id number]) PT-Bed Mobility Assessment Rolling Type of Rolling Log Rolling,Roll to Right Level of Assist Contact Guard Assistance Supine to Sit Supine to Sit Contact Guard Assistance Scooting Scooting to Edge of Bed Standby Assistance PT-Transfer Assessment Sit to and From Stand Sit to and from Stand Contact Guard Assistance, Minimal Assistance Equipment Transfer Assistive Device Gait Belt,Front Wheeled Walker Orthotic/Prosthetic Devices or Brace: No Transfers Transfer Destination Bed,Chair Transfer Technique pt ambulated using FWW Transfer Ability Level of Assist Contact Guard Assistance, Minimal Assistance Comments Mobility Comments Pt recalled 3/3 precautions. Pt was aware to use small steps for turns and transfers to avoid excessive trunk rotation Gait Assessment Gait Gait Assistance Required: Contact Guard Assist Distance (Feet) 90 Able to Maintain Weight Bearing Status Yes During Gait Assistive Devices Assistive Device Gait Belt,Front Wheeled Walker Orthotic/Prosthetic Devices or Brace: No Gait Deviations General Gait Pattern Antalgic,Decreased Stride Length,Decreased Feet Clearance Factors Limiting Gait Function Factors Limiting Gait Function Abnormal Tonal Influences, Decreased Activity Tolerance, Decreased Strength,Pain,Poor Balance Comments Gait Comments Pt did therapy session without AFO this am. Pt amb from bed to sink counter first, but there's noticeable L toe drag x 2 that caused pt to lean forward accidentally. His R foot clonus also affect his balance during stance phase on RLE which caused jerky movements and pt needed to stabilize himself with WB through UEs on walker. Pt was able to amb from sink counter to bathroom then to hallway for a total of 90 feet. Pt had 2-3 episodes of L toe drag that he stated it is more difficult for him to lift his LLE up today. M5 PT-IP Objective Assessments Start: 07/16/19 12:08 Freq: NEEDED Status: Active Protocol: Document 07/16/19 13:25 AW (Rec: 07/16/19 14:00 AW [id number]) Orientation Orientation/Cognition Level of Alertness Alert Orientation Name,Date,Place,Situation Language Function Ability No Deficits Noted Safety Awareness Understands Safety Issues Memory Description No Deficits Noted Gross Range of Motion Upper Extremity ROM Assessment Within Functional Limits Lower Extremity ROM Assessment Within Functional Limits Strength Upper Extremity Strength Assessment Within Functional Limits Lower Extremity Strength Assessment Right Impaired Hip 4+/5 Knee 5/5 Ankle 4/5 Coordination Assessment Gross Coordination Gross Coordination WNL Sensation Assessment Sensation Gross Sensation WNL Muscle Tone Muscle Tone WNL No Muscle Tone Location Right Lower Extremity Type of Tone Clonus Severity of Tone Moderate Manifistation of Tone Fluctuation Comments Muscle Tone Comments 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 AFO provides compensation M6 PT-IP Treatment Start: 07/16/19 12:08 Freq: NEEDED Status: Active Protocol: Document 07/16/19 13:25 AW (Rec: 07/16/19 14:00 AW [id number]) Physical Therapy Treatment Education Education Provided Precautions,Weight Bearing Status,Post-Op Packet,Safety M7 PT-IP Assessment and Plan Start: 07/16/19 12:08 Freq: NEEDED Status: Active Protocol: Document 07/17/19 11:05 (Rec: 07/17/19 11:19 [email or web address]) PT Summary Assessment and Plan Potential Rehabilitation Potential Good Status of Condition at Evaluation Evolving Summary Impairments Pain,Strength,Balance,Tone,Bed Mobility,Transfers,Gait, Activity Tolerance Assessment Summary Pt's was not present during session, and unable to assess pt's mobility with AFO. Pt did progress with activity tolerance and gait distance today upto 90 feet with FWW ( without AFO) . However, his gait appears unsteady due to RLE clonus and new onset of occasional L toe drag which increase his fall risks. There 's noticeable mild L facial droop and increased L sided weakness as well, and pt stated he had an episode of limited vision for 2 hours last week and he didnt know why. Pt also had PMH of TIA and cardiac issues. Notified ROCAEL Lazo regarding pt's mobility status. Will have tx session this pm with pt's for CG training and consult with her regarding pt's previous gross/fine motor control. Goals Bed Mobility Goal Independent Transfer Goal Independent Gait Goal Independent,Front Wheel Walker Gait Distance 100 feet using FWW and AFO Days to Meet Goals 2 Frequency of Treatment Frequency Of Treatment Twice a Day Treatment Plan Physical Therapy Treatment Plan Bed Mobility Training,Transfer Training,Gait Training, Therapeutic Exercise,Balance Retraining,Post Op Education, Discharge Planning,Hot or Cold Pack,Neuromuscular Re-ed, Coordination Retraining,Manual Therapy Other Recommendations and Next Treatment ask CG if she notices any Focus difference of pt's motor control CG training to assist pt's for bed mob and transfers and amb gait analysis monitor pt's gross and fine motor control Trial ambulation with AFO. Progress gait distance. Recommendations To Nursing Amount of Assist Needed Standby Assistance,1 Person Assist Discharge Recommendations PT Discharge Recommendations Home with Assistance, Outpatient PT Other Discharge Recommendations FWW at all times at least until follow up ortho appointment. Equipment Needed for Home Before FWW Discharge
--- NOTE | 2019-07-17 12:30 | PT.IPTN ---
Current Diagnoses Opioid dependence, uncomplicated (07/16/19) Spinal stenosis, lumbar region with neurogenic claudication (07/16/19) Surgery Performed Operation Date: 07/16/19 07:45 Actual Procedures p L3-4 & L5-S1 Laminectomies - Jamie Rivera MD Physical Therapy Treatment Note M2 PT-IP Current Condition Start: 07/16/19 12:08 Freq: NEEDED Status: Active Protocol: Document 07/16/19 13:25 AW (Rec: 07/16/19 14:00 AW [id number]) Physical Therapy Current Condition Current Condition Evaluation Date 07/16/19 Treatment Diagnosis s/p L3-4, L5-S1 lami, difficulty in walking Onset Date 07/16/19 Precautions Lumbar Precautions Log Roll,No Twisting,Limit Bending,Lifting Restriction of 10 lbs,Gait Belt above Incisional Area Other Precautions Pt typically uses AFO for RLE to compensate for R ankle clonus. Weight Bearing Status Weight Bearing Status Weight Bear as Tolerated M3 PT-IP Subjective Start: 07/16/19 12:08 Freq: NEEDED Status: Active Protocol: Document 07/17/19 13:41 AB (Rec: 07/17/19 14:06 AB [id number]) Subjective Physical Therapy Visit Type Type Treatment Note Visit Start Time 12:30 Visit Stop Time 13:29 Total Visit Minutes 59 Number of SAWYER HELPER Visits 0 Physical Therapy Visit Comments Patient Comments pt agreeable to do PT. spouse present for caregiver training Therapy Pain Assessment Pain When Pain Assessed At Rest Pain Present Pain Present Pain Reported Location Back Intensity 8 Scale Used increased to 8 1/2 with mobility Pain Management Techniques Apply Cold,Re-positioning, Timing of Activity with Medications M4 PT-IP Mobility and Gait Start: 07/16/19 12:08 Freq: NEEDED Status: Active Protocol: Document 07/17/19 13:41 AB (Rec: 07/17/19 14:06 AB [id number]) PT-Bed Mobility Assessment Rolling Level of Assist Contact Guard Assistance Supine to Sit Supine to Sit Contact Guard Assistance Sit to Supine Sit to Supine Minimal Assistance PT-Transfer Assessment Sit to and From Stand Sit to and from Stand Moderate Assistance,1 Person Assistance,Use of Upper Extremities Equipment Transfer Assistive Device Gait Belt,Front Wheeled Walker Orthotic/Prosthetic Devices or Brace: Yes Transfers Transfer Destination Bed,Chair Transfer Technique Stand Step Pivot Transfer Ability Level of Assist Moderate Assistance,1 Person Assistance,Use of Upper Extremities Comments Mobility Comments spouse present for caregiver training. Pt sitting on chair . spouse stated that he can assist pt but when asked further stated that she can hand him things but will not be able to physically assist pt. spouse uses a SPC for ambulation and will not be able to assist pt with transfers and ambulation due to her own medical issues. pt completed sit <>stand mod A and max cues. pt with heavy use of BUE, slides buttocks forward to stand and requires mod A and cues to activate B quads to straighten B knee to stand. completed x 5 reps of sit to stand and pt continues to require min to mod A and max cues for techniques and safety. attempted caregiver training. instructed spouse on how to use safety belt and how to assist pt but spouse was unable to provide proper cues for pt. pt transferred to bed using FWW mod A and cues. completed sit to supine min A with BLE and CGA with supine to sit. pt completed sit to stand from EOB and continues to require mod A and max cues as pt is not activating B quads properly without cues and assist. pt ambulated ~ 50 ft using FWW mod A and cues. presents with unsteady gait and required mod A for R quads activation. pt has R AFO on. RLE tends to cross over midline during late swing phase and early stance phase and has increase R knee flexion with (+) R knee buckling requiring mod A and cues for steadiness. pt ambulated back to room. informed regarding current mobility and PT's concerns for safe d/c. informed pt that at this time, pt will need 24/ 7 assist at home but somebody that can provide physical assistance and homehealth and other recommendation is SNF rehab. informed major case detective. pt requested to go back to bed . completed sit to stand from the chair min to mod A and max cues. completed stand step transfer using FWW (+) R knee buckling providing mod A for stability and cues. pt completed sit to supine min A and cues. positioned pt in bed. call ligth and table placed within reach. ice pack provided. Talked to nurse that pt is not ready to d/c home. Gait Assessment Gait Gait Assistance Required: Moderate Assistance Distance (Feet) 50 Able to Maintain Weight Bearing Status Yes During Gait Assistive Devices Assistive Device Gait Belt,Front Wheeled Walker Orthotic/Prosthetic Devices or Brace: Yes Gait Deviations General Gait Pattern Antalgic,Decreased Stride Length,Decreased Feet Clearance Factors Limiting Gait Function Factors Limiting Gait Function Decreased Activity Tolerance, Decreased Sensation,Decreased Strength,Incoordination, Limited Range of Motion,Pain, Poor Balance,Poor Safety Awareness Comments Gait Comments please refer to mobility section for details M5 PT-IP Objective Assessments Start: 07/16/19 12:08 Freq: NEEDED Status: Active Protocol: Document 07/16/19 13:25 AW (Rec: 07/16/19 14:00 AW [id number]) Orientation Orientation/Cognition Level of Alertness Alert Orientation Name,Date,Place,Situation Language Function Ability No Deficits Noted Safety Awareness Understands Safety Issues Memory Description No Deficits Noted Gross Range of Motion Upper Extremity ROM Assessment Within Functional Limits Lower Extremity ROM Assessment Within Functional Limits Strength Upper Extremity Strength Assessment Within Functional Limits Lower Extremity Strength Assessment Right Impaired Hip 4+/5 Knee 5/5 Ankle 4/5 Coordination Assessment Gross Coordination Gross Coordination WNL Sensation Assessment Sensation Gross Sensation WNL Muscle Tone Muscle Tone WNL No Muscle Tone Location Right Lower Extremity Type of Tone Clonus Severity of Tone Moderate Manifistation of Tone Fluctuation Comments Muscle Tone Comments 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 AFO provides compensation M6 PT-IP Treatment Start: 07/16/19 12:08 Freq: NEEDED Status: Active Protocol: Document 07/17/19 13:41 AB (Rec: 07/17/19 14:06 AB [id number]) Physical Therapy Treatment Education Education Provided Safety M7 PT-IP Assessment and Plan Start: 07/16/19 12:08 Freq: NEEDED Status: Active Protocol: Document 07/17/19 13:41 AB (Rec: 07/17/19 14:06 AB [id number]) PT Summary Assessment and Plan Potential Rehabilitation Potential Good Summary Impairments Pain,ROM,Strength,Balance, Coordination,Sensation,Tone, Cognition,Bed Mobility, Transfers,Gait,Activity Tolerance Progress Towards Goals Slow Progress due to Pain,Slow Progress due to Medical Issues,Slow Progress due to Activity Tolerance Assessment Summary attempted caregiver training but pt's spouse will not be able to provide physical assistance to pt. pt requires mod A with transfers and ambulation using FWW; presents with unsteady gait and (+) R knee buckling. pt is not safe to go home at this time and needs to be more independent to safely go home. pt will require SNF rehab to improve strength and mobility. Goals Bed Mobility Goal Independent Transfer Goal Independent Gait Goal Independent,Front Wheel Walker Gait Distance 100 feet using FWW and AFO Days to Meet Goals 5 Frequency of Treatment Frequency Of Treatment Twice a Day Treatment Plan Physical Therapy Treatment Plan Bed Mobility Training,Transfer Training,Gait Training, Therapeutic Exercise,Balance Retraining,Post Op Education, Discharge Planning,Hot or Cold Pack,Neuromuscular Re-ed, Coordination Retraining,Manual Therapy Recommendations To Nursing Amount of Assist Needed 1 Person Assist Discharge Recommendations PT Discharge Recommendations SNF Rehab
--- NOTE | 2019-07-17 15:09 | PC.NURSE ---
1500 Reported that Pt not okd for dc today per PT. Dr [place] office notified.
--- NOTE | 2019-07-17 15:17 | CM.DPC ---
NATE Cont: Called [facility] at [phone] opt. 2 to inquire about patient discharging to a SNF. Per rep Carroll, all referrals must be sent in from the member's PCP. She stated that if the patient was discharging today to a SNF, then the PCP must contact [facility] to submit and urgent authorization. Info relayed to NATE Soto. Supriya Mayorga, [facility] [place] [facility]
[2019-07-17] MEDS: KETOROLAC 30 MG/ML VIAL IV (18:12)
--- NOTE | 2019-07-17 18:14 | OT.IP.EVAL ---
Current Diagnoses Opioid dependence, uncomplicated (07/16/19) Spinal stenosis, lumbar region with neurogenic claudication (07/16/19) Surgery Performed Operation Date: 07/16/19 07:45 Actual Procedures p L3-4 & L5-S1 Laminectomies - Jamie Rivera MD Past Medical History (Last Reviewed 05/27/19 @ 10:37 by Maira Sotomayor DO) Acute medial meniscus tear of left knee (Acute) Anxiety (Chronic) BPH (benign prostatic hyperplasia) (Chronic) Cholecystitis (Acute) Chronic back pain (Chronic) Chronic neck pain (Chronic) Depression (Chronic) Disc disease with myelopathy, lumbar (Acute) GERD (gastroesophageal reflux disease) (Chronic) Gout (Chronic) History of bleeding ulcers (Acute ~1990) History of EKG (Acute) History of fall (Acute) History of migraine (Acute) History of pyelonephritis (Acute) History of sepsis (Acute ~11/2017) Hyperlipemia (Chronic) Hypertension (Chronic) Neuropathy of both upper extremities (Acute) Plantar fasciitis (Resolved) Pulmonary emboli (Acute ~12/15/17) Sleep apnea (Chronic) Tinea corporis (Acute) Tinnitus (Acute) Urethral stone (Resolved ~11/2017) Weight loss, intentional (Acute) Surgical History (Last Updated 07/10/19 @ 14:52 by Lianna Teresa RN) History of laminectomy (Acute) History of mandibular surgery (Resolved) History of meniscectomy of left knee (Acute) History of orchiectomy (Acute ~06/2016) History of surgery on arm (Resolved) History of vasectomy Hx of Achilles tendon repair (Resolved) Hx of eye surgery (Resolved) Hx of knee surgery (Resolved) Hx of lithotripsy (Acute) Hx of neck surgery (Resolved) Hx of shoulder surgery (Resolved) Hx of thumb surgery (Resolved) Status post appendectomy Occupational Therapy Inpatient Evaluation/Re-Eval M1 PT/OT-IP Prior Functional Status Start: 07/17/19 17:21 Freq: NEEDED Status: Active Protocol: Document 07/17/19 10:10 [facility] (Rec: 07/17/19 18:14 [facility] [id number]) Medical Review Prior Functional Status Medical History Reviewed Yes Diet/Fluid Consistency Regular Communication able to make needs known Mobility and Gait Pt was modified independent with all mobility using SPC and AFO for RLE. Following cervical laminectomy 10 years ago, pt had new onset right ankle clonus. With SPC and AFO , patient could walk up to 2 miles. Activities of Daily Living and IADL's Independent Social History Household Members spouse Living Arrangements House Number of Floors (Floors) One Floor Number of Stairs To Enter/Railing? ramped entry Home Environment High Toilet,Ramp Home Equipment Four Wheel Walker,Straight Cane,Shower Seat without Backrest,Hand Held Shower, Hospital Bed,Grab Bars In Shower Employment Status Retired Additional Social History Comment Pt lives with spouse who is available to assist as needed. However when came for training and needing to use a cane and therefore will be unable to assist physically for pt's needs. M2 OT-IP Current Condition Start: 07/17/19 17:21 Freq: Status: Active Protocol: Document 07/17/19 10:10 [facility] (Rec: 07/17/19 18:14 [facility] [email or web address]) Occupational Therapy Current Condition Current Condition Evaluation Date 07/17/19 Treatment Diagnosis S/p L3-4, L5-S1 Laminectomies, decreased balance ,self-care Post Operative Precautions Lumbar Precautions Log Roll,No Twisting,Limit Bending,Lifting Restriction of 10 lbs,Gait Belt above Incisional Area Weight Bearing Status Weight Bearing Status Weight Bear as Tolerated M3 OT- IP Subjective and Pain Start: 07/17/19 17:21 Freq: Status: Active Protocol: Document 07/17/19 10:10 [facility] (Rec: 07/17/19 18:14 [facility] [id number]) OT- Subjective Occupational Therapy Visit Type Type Initial Evaluation Visit Start Time 10:10 Visit Stop Time 10:49 Notes Pt also seen from 1225 to 1312 for caregiver training. Occupational Therapy Visit Comments Patient Comments Pt willing to do OT eval in AM as not in yet and also saw pt in PM for caregiver training with . Pt's insistent that able to assist as prior was a [employer] WORK[employer]. Patient/Caregiver Goals To go home. OT Pain Assessment Pain When Pain Assessed At Rest Pain Present Pain Present Denied Pain M4 OT- IP ADL's Start: 07/17/19 17:21 Freq: Status: Active Protocol: Document 07/17/19 10:10 [facility] (Rec: 07/17/19 18:14 [facility] [email or web address]) OT ADL-Grooming General Evaluation Grooming Ability Standby Assistance Comments OT Grooming Comments Set- up assist , pt able to wash his hands at this time. Pt has mild facial droop on left side on his mouth. OT ADL-Dressing General Eval Upper Body Dressing Ability Standby Assistance Lower Body Dressing Ability Maximum Assistance Areas Needing Assistance Pants/Shorts,Socks,Shoes Comments OT Dressing Comments Pt needing MAX assist to lisandro his socks, AFO and shoes . Pt' s states can assist at home however has trouble herself to bend over to assist him. OT ADL-Toileting General Evaluation Toileting Ability Minimal Assistance Comments OT Toileting Comments YARELIS while standing with FWW for balance while letting go on FWW to stand to urinate in the toilet. Educated pt to try to reach back to see if he is able to wipe. Pt needing YARELIS to stand . At this time pt's not able to provide enough assist for pt for toileting needs. In addition pt's not remembering how to cue and assist pt for back precautions needs. OT ADL-Bathing Comments OT Bathing Comments Pt not wanting to shower at this time. M6 OT- IP Functional Cognition Start: 07/17/19 17:21 Freq: Status: Active Protocol: Document 07/17/19 10:10 [facility] (Rec: 07/17/19 18:14 [facility] [email or web address]) Cognitive Factors Limiting Selfcare Function Cognitive Ability Level of Alertness Alert Patient Orientation Name,Place,Situation Attention Span Ability Capable of Focused Attention, Capable of Sustained Attention Ability to Follow Commands Able to Follow One Step Commands Memory Description Short Term Impaired Safety Awareness Decreased Ability to Apply Precautions,Underestimates Need for Assistance Problem Solving Ability Unable to Identify Errors, Needs Assist to Identify Solutions Executive Function Ability Unable to Filter Distractions, Unable to Make Plans,Unable to Remember Details Cognitive Comments Cognitive Assessment Comments Pt not able to recall all back precautions or incorporate during ADl and functional mobility needs. Pt's also not able to recall how to properly give pt cues for safety during bed mobility, transfers, etc... OT- Vision and Hearing OT- Hearing Assessment OT- Hearing Assessment WFL OT- Vision Assessment Vision Assessment Comments Per pt states 2 weeks ago had blacked out vision in right eye for lower quadrant but cleared up n 2 hours. M7 OT- IP Mobility and Balance Start: 07/17/19 17:21 Freq: Status: Active Protocol: Document 07/17/19 10:10 [facility] (Rec: 07/17/19 18:14 [facility] [email or web address]) OT- Bed Mobility Assessment Supine to Sit Supine to Sit Assist Standby Assistance Sit to Supine Sit to Supine Assist Standby Assistance OT-Transfer Assessment Sit to and From Stand Sit to and from Stand Minimal Assistance,Moderate Assistance Transfers Transfer Ability Minimal Assistance,Moderate Assistance Technique Transfer Destination Bed,Chair Transfer Technique Stand Step Pivot Devices Transfer Assistive Devices Gait Belt,Front Wheeled Walker Comments Mobility Comments Pt needing MAX vc for bed mobility. Pt's even after several cues how to help the pt unable to give pt appropriate assist. Pt needing YARELIS to MODA to stand as not able to properly coordinate, weakness in his legs to come to stand. OT- Gait Assessment Comments Gait Ability Comments Even with Right AFO on, pt having trouble to lift and clear his left foot while walking and at times buckling an needing therapist to assist with balance . OT- Balance Assessment Sitting Balance and Reactions Static Sitting Balance Ability Good Standing Balance and Reactions Static Standing Balance Ability Fair M8 OT- IP Objective Assessments Start: 07/17/19 17:21 Freq: Status: Active Protocol: Document 07/17/19 10:10 [facility] (Rec: 07/17/19 18:14 [facility] [email or web address]) OT Gross Range of Motion Upper Extremity Range of Motion Assessment Within Functional Limits OT Strength Comments Strength Comments RUE 4/5 , LUE 4-/5 Per states pt's LUE and LLE fluctuate with strength since his cervical surgery years ago as at time weaker. OT- Coordination Assessment Upper Extremity Finger to Nose Test Within Functional Limits OT Sensation Assessment Comments Summary Comments Per pt have decreased sensation with left side of body. M9 OT- IP Assessment and Plan Start: 07/17/19 17:21 Freq: Status: Active Protocol: Document 07/17/19 10:10 [facility] (Rec: 07/17/19 18:14 [facility] [email or web address]) OT Summary Assessment and Plan Potential Rehabilitation Potential Good Analytic Complexity at Evaluation Low Summary OT Impairments Balance,Functional Cognition, Functional Mobility,Grooming, Dressing,Toileting,Bathing, Toilet Transfers,Shower Transfers Progress Towards Goals Slow Progress due to Medical Issues,Slow Progress due to Activity Tolerance,Slow Progress due to Cognition Assessment Summary Pt mod complexity and barriers are safety awareness, decreased balance, and now needing assist for all Adl and functional mobility needs. Pt's not able to do any lifting and pt is a high fall risk. Both pt and have poor follow through with safety of back precautions for ADl and functional mobility needs. Recommended that pt go to skilled rehab prior to going home. Goals Grooming Goal Standby Assistance Dressing Goal Standby Assistance Toileting Goal Standby Assistance Bathing Goal Minimal Assistance Toilet Transfer Goal Standby Assistance Shower Transfer Goal Contact Guard Assistance Patient/Caregiver Education Goal Demonstrate Post-Op Precautions Days to Meet Goals 10 Treatment Plan OT Treatment Plan ADL Training,Functional Cognition Training,Functional Mobility,Patient/Family Education,Discharge Planning Other Treatment Recommendations and Next shower, back precaution Treatment Focus education for ADl's Discharge Recommendations OT Discharge Recommendations SNF Rehab Home Equipment Needs FWW, BSC
[2019-07-17] MEDS: SENNOSIDES 8.6 MG TABLET 17.2 MG PO (21:12)
[2019-07-17] MEDS: DOXAZOSIN 4 MG TABLET 8 MG PO (21:13)
[2019-07-17] MEDS: FINASTERIDE 5 MG TABLET PO (21:15)
--- NOTE | 2019-07-18 00:44 | PC.NURSE ---
Notified Dr Crews aviation engineer doctor for Dr Danielle. Pt BP 79/49 and recheck of 83/49. Pt asymptomatic without complaints. No new orders per MD. Continue to monitor
[2019-07-18 03:35] VITALS: BP 142/77; PULSE 66; RESP 16; TEMP 37.7; O2SAT 95
[2019-07-18] MEDS: MORPHINE ER 15 MG TABLET PO ×2 (06:23→13:17)
--- NOTE | 2019-07-18 06:53 | PC.NURSE ---
Lower back CDI dressing scant amount of sanguineous drainage. WCTM
[2019-07-18 07:00] VITALS: BP 159/90; PULSE 68; RESP 14; TEMP 37.7; O2SAT 97
[2019-07-18] MEDS: DULOXETINE 30 MG CAPSULE 60 MG PO (08:17)
[2019-07-18] MEDS: VITAMIN B COMPLEX 1 CAPSULE 1 CAP PO (08:17)
[2019-07-18] MEDS: METOPROLOL IR 25 MG TABLET PO (08:17)
[2019-07-18] MEDS: ACETAMINOPHEN 325 MG TABLET 650 MG PO (08:17)
[2019-07-18] MEDS: CHOLECALCIFEROL (VITAMIN D3) 1,000 UNIT TABLET 2000 UNIT PO (08:17)
[2019-07-18] MEDS: DOCUSATE 100 MG CAPSULE PO (08:17)
[2019-07-18] MEDS: GABAPENTIN 400 MG CAPSULE PO ×2 (08:17→12:40)
--- NOTE | 2019-07-18 09:12 | PM.PNPO.1 ---
Subjective Subjective Date Patient Seen: 07/18/19 Time Patient Seen: 09:12 Interval history: Hospital day 3, postop day 2 following L3-4, L5-S1 laminectomies by Dr. Rivera. Patient has remained stable. He is progressing slowly with PT/OT and needing continued assist. Patient's has had recent surgery and is not going to be able to help him at home physically. Discussion has been done regarding need for SNF prior to going home for further rehab. Patient states he still notes leg weakness. Exam Vital Signs (past 8 hours): - 07/18/19 03:35 07/18/19 07:00 Temperature 99.9 F H 99.9 F H Pulse Rate 66 68 Respiratory Rate 16 14 Blood Pressure 142/77 H 159/90 H Pulse Oximetry 95 97 Oxygen Delivery Method Room Air Oxygen Flow Rate 0 Narrative Exam Narrative: Alert, oriented no acute distress sitting on the edge of bed. Back. Dressing to lower lumbar area is dry with small amount of blood spot to the distal part of dressing. No signs of infection or inflammation. Legs. Patient is able to do leg extension from sitting position slowly. No calf pain or swelling. Pulses symmetrical. Objective Labs Result Diagrams: 07/17/19 06:03 Assessment & Plan Post-op Postoperative Procedures: Procedures Operation Date: 07/16/19 07:45 Actual Procedures Side Surgeon p L3-4 & L5-S1 Laminectomies Jamie Rivera MD Plan: Patient will continue working with PT/OT. Anticipate discharge to SNF in the next day if stable and once he has authorization. Will apply CovRsite dressing to lumbar incision.
--- NOTE | 2019-07-18 09:50 | OT.IP.TRT ---
Current Diagnoses Opioid dependence, uncomplicated (07/16/19) Spinal stenosis, lumbar region with neurogenic claudication (07/16/19) Surgery Performed Operation Date: 07/16/19 07:45 Actual Procedures p L3-4 & L5-S1 Laminectomies - Jamie Rivera MD Occupational Therapy Treatment Note M2 OT-IP Current Condition Start: 07/17/19 17:21 Freq: Status: Active Protocol: Document 07/17/19 10:10 [facility] (Rec: 07/17/19 18:14 [facility] [id number]) Occupational Therapy Current Condition Current Condition Evaluation Date 07/17/19 Treatment Diagnosis S/p L3-4, L5-S1 Laminectomies, decreased balance ,self-care Post Operative Precautions Lumbar Precautions Log Roll,No Twisting,Limit Bending,Lifting Restriction of 10 lbs,Gait Belt above Incisional Area Weight Bearing Status Weight Bearing Status Weight Bear as Tolerated M3 OT- IP Subjective and Pain Start: 07/17/19 17:21 Freq: Status: Active Protocol: Document 07/18/19 09:40 [facility] (Rec: 07/18/19 09:50 [facility] [email or web address]) OT- Subjective Occupational Therapy Visit Type Type Treatment Note Visit Start Time 09:10 Visit Stop Time 09:37 Total Visit Minutes 27 Occupational Therapy Visit Comments Patient Comments Pt willing to get up, during OT session case management came in to inform him that his insurance has authorized him to go to skilled rehab today. OT Pain Assessment Pain When Pain Assessed During Mobility Pain Present Pain Present Pain Reported Location l side Intensity 5 Scale Used Numeric (1 - 10) M4 OT- IP ADL's Start: 07/17/19 17:21 Freq: Status: Active Protocol: Document 07/18/19 09:40 [facility] (Rec: 07/18/19 09:50 [facility] [email or web address]) OT ADL-Oral Care Comments Oral Care Comments Due to low BP did not attempt to transfer engineer front of sink. OT ADL-Dressing General Eval Lower Body Dressing Ability Maximum Assistance Areas Needing Assistance Shoes,Orthosis/Prosthesis Comments OT Dressing Comments MAX A for shoes and right AFO. Educated pt to have comfortable clothing brought in for skilled rehab and to be proactive about his care there. M6 OT- IP Functional Cognition Start: 07/17/19 17:21 Freq: Status: Active Protocol: Document 07/18/19 09:40 [facility] (Rec: 07/18/19 09:50 [facility] [email or web address]) Cognitive Factors Limiting Selfcare Function Cognitive Ability Level of Alertness Alert Patient Orientation Name,Place,Situation Attention Span Ability Capable of Focused Attention, Capable of Sustained Attention Ability to Follow Commands Able to Follow One Step Commands Memory Description Short Term Impaired Safety Awareness Decreased Ability to Apply Precautions,Underestimates Need for Assistance Problem Solving Ability Unable to Identify Errors, Needs Assist to Identify Solutions Executive Function Ability Unable to Filter Distractions, Unable to Make Plans,Unable to Remember Details Cognitive Comments Cognitive Assessment Comments Today able to recall all precautions however still having difficulty to incorporate precautions during functional mobility and decreased body positioning awareness in bed. Pt thought his was straight in the bed however his trunk was slightly twisted to the left. Pt needing MODA vc for safety awareness for bed mobility today and transfers.Pt will continue to benefit from repetitions over and over for safety of movements. M7 OT- IP Mobility and Balance Start: 07/17/19 17:21 Freq: Status: Active Protocol: Document 07/18/19 09:40 [facility] (Rec: 07/18/19 09:50 [facility] [email or web address]) OT- Bed Mobility Assessment Supine to Sit Supine to Sit Assist Standby Assistance OT-Transfer Assessment Sit to and From Stand Sit to and from Stand Contact Guard Assistance,1 Person Assistance Transfers Transfer Ability Contact Guard Assistance,1 Person Assistance Technique Transfer Destination Bed,Chair Transfer Technique Stand Step Pivot Comments Mobility Comments Pt still needing step by step instructions but less cues than yesterday. BP supine 93/ 52, sitting 82/54, standing 77 /55 and then 88/57, and after transfer to the recliner 101/ 55. Pt complaining of being a little woozy, information and numbers given to nursing. M8 OT- IP Objective Assessments Start: 07/17/19 17:21 Freq: Status: Active Protocol: Document 07/17/19 10:10 [facility] (Rec: 07/17/19 18:14 [facility] [email or web address]) OT Gross Range of Motion Upper Extremity Range of Motion Assessment Within Functional Limits OT Strength Comments Strength Comments RUE 4/5 , LUE 4-/5 Per states pt's LUE amnd LE fluctuate with strength since his cervical surgery years ago as at time weaker. OT- Coordination Assessment Upper Extremity Finger to Nose Test Within Functional Limits OT Sensation Assessment Comments Summary Comments Per pt have decreased sensation with left side of body. M9 OT- IP Assessment and Plan Start: 07/17/19 17:21 Freq: Status: Active Protocol: Document 07/18/19 09:40 [facility] (Rec: 07/18/19 09:50 [facility] [email or web address]) OT Summary Assessment and Plan Potential Rehabilitation Potential Good Analytic Complexity at Evaluation Low Summary OT Impairments Balance,Functional Cognition, Functional Mobility,Grooming, Dressing,Toileting,Bathing, Toilet Transfers,Shower Transfers Progress Towards Goals Slow Progress due to Activity Tolerance,Slow Progress due to Cognition Assessment Summary Pt still needing extensive cueing for safety for transitions -bed mobility, coming to stand or sitting. Pt has been approved for skilled rehab and to be discharged today. Noted slightly better balance and no facial droop noted today. Discharge Recommendations OT Discharge Recommendations SNF Rehab Home Equipment Needs FWW, BSC-Defer to skilled rehab
--- NOTE | 2019-07-18 10:04 | P.DS_ITS ---
History of Present Illness History of Present Illness Date Patient Seen: 07/18/19 Time Patient Seen: 10:04 Chief complaint: [id number] L3-4 L5-S1 LAMINECTOMIES Narrative: Hospital day 3, postop day 2 following L3-4, L5-S1 laminectomies. Patient has remained stable. He has progressed very slowly with PT/OT. Needing continued assist for transfers and ambulation. His has had recent surgery and is not able to assist him physically at home. Discussion done with patient regarding need for SNF rehab before going home and patient agrees to this. Discharge Providers Provider Date of admission: 07/16/19 06:17 Discharge Date: 07/18/19 Primary care physician: Maira Sotomayor DO Consults: 07/16/19 07:07 Consult to Respiratory Therapy Evaluate & Treat Comment: Physician Instructions: Evaluate and treat 07/16/19 10:53 Consult to Occupational Therapy Evaluate & Treat Comment: Physician Instructions: Evaluate and treat Consult to Physical Therapy Evaluate & Treat Comment: Physician Instructions: Evaluate and Treat Discharge provider: Guillermo Willis PA-C Summary Hospital Course Discharge Diagnosis: Status post L3-4, L5-S1 laminectomy Hospital Course: Patient brought to hospital on 07/16/2019 for above noted surgery. He remained stable postoperatively. Progressed very slowly with PT/OT and needing continue to cyst. Discharge to SNF on postop day 2 Status at Discharge Cognitive/behavioral status at discharge: oriented Overall status at discharge: patient is not back to baseline Time Spent with Patient Time spent: Less than 30 minutes Exam Vital Signs (past 8 hours): - 07/18/19 03:35 07/18/19 07:00 Temperature 99.9 F H 99.9 F H Pulse Rate 66 68 Respiratory Rate 16 14 Blood Pressure 142/77 H 159/90 H Pulse Oximetry 95 97 Oxygen Delivery Method Room Air Oxygen Flow Rate 0 Narrative Exam Narrative: Alert, oriented no acute distress resting in chair. Back. Dressing to lumbar area dry with small amount of dry blood to lower the dressing. No signs of infection or inflammation. Legs. No calf pain or swelling. Pulses symmetrical. Does have some weakness to leg extension. Objective Labs Result Diagrams: 07/17/19 06:03 Discharge Plan Discharge Plan Patient Disposition: SNF Transfer to: [facility] Under care of provider: Facility MD or PCP Discharge comment: f/u 1.5 wks Discharge Med Rec/Prescriptions Prescriptions: New acetaminophen 325 mg Tablet 650 mg PO Q6HR PRN (Reason: Pain, Mild (1-3)) Qty: 30 RF: 0 morphine 15 mg Tablet Extended Release 15 mg PO Q8H Qty: 60 RF: 0 morphine 15 mg Tablet 15 mg PO Q3H PRN (Reason: Pain, Severe (7-10)) Qty: 30 RF: 0 Continued vitamin B complex [B Complex-Vitamin B12] tablet 1 tab PO DAILY RF: 0 morphine [MS Contin] 15 MG tablet extended release 15 mg PO Q8H Qty: 0 RF: 0 cholecalciferol (vitamin D3) [Vitamin D3] 2,000 UNIT capsule 2,000 unit PO BID Qty: 0 RF: 0 [STOOL STOFTENER] 1 cap PO TID Qty: 0 RF: 0 morphine 15 MG tablet 15 mg PO PRN PRN (Reason: Pain) Qty: 0 RF: 0 clotrimazole-betamethasone [Lotrisone] 1-0.05 % cream 1 applictn TOP BID Qty: 15 RF: 0 lidocaine 5 % ointment 1 applictn TOP BID PRN (Reason: Pain) Qty: 30 RF: 0 magnesium 30 mg tablet 30 mg PO BID RF: 0 doxazosin 8 mg tablet 8 mg PO HS Qty: 90 RF: 1 finasteride 5 mg tablet 5 mg PO HS Qty: 90 RF: 1 duloxetine [Cymbalta] 30 mg capsule,delayed release(DR/EC) 60 mg PO QDAY Qty: 180 RF: 1 gabapentin [Neurontin] 400 mg capsule 400 mg PO QID Qty: 360 RF: 0 metoprolol tartrate 25 mg tablet 25 mg PO BID Qty: 180 RF: 1 baclofen 10 mg tablet 10 mg PO TID RF: 0 Follow up/Referrals: Maira Sotomayor DO [Primary Care Provider] - Discharge Health Status Brief summary of current health status: Patient had continued low back pain and leg symptoms. Underwent L3-4, L5-S1 laminectomies. Still having slow recovery and needing assist. Multidrug resistant organism: No MDRO Provider Discharge Instructions Diet: Diet as Tolerated Liquid consistency: Normal/Thin Food texture: Regular Activity: limited BLT 10 lbs max lift. No for forceful bending or twisting of lumbar spine. Ambulate as tolerated. Use walker as needed. Skin/Wound/Dressing Care Report to your healthcare provider any signs of infection, such as:: chills, fever, night sweats, increased pain, unusual drainage and unusual redness Dressing: may change dressing and shower POD#5 (Monday) Special Rehabilitation Services Reason for rehabilitation: Post-operative therapy Rehab type: Physical therapy and Occupational therapy Restrictions to mobility: No forceful bending or twisting of lumbar spine. Visit Report/Discharge Packet Instructions: DI for Laminectomy Stand Alone Forms: Surgery Discharge Discharge Data Primary Care Provider: Maira Sotomayor
[2019-07-18] MEDS: MORPHINE IR 15 MG TABLET PO (10:12)
--- NOTE | 2019-07-18 10:20 | PM.DS.1 ---
History of Present Illness History of Present Illness Chief complaint: [id number] L3-4 L5-S1 LAMINECTOMIES Narrative: Hospital day 3, postop day 2 following L3-4, L5-S1 laminectomies. Patient has remained stable. He has progressed very slowly with PT/OT. Needing continued assist for transfers and ambulation. His has had recent surgery and is not able to assist him physically at home. Discussion done with patient regarding need for SNF rehab before going home and patient agrees to this. Discharge Providers Provider Date of admission: 07/16/19 06:17 Discharge Date: 07/18/19 Primary care physician: Maira Sotomayor DO Consults: 07/16/19 07:07 Consult to Respiratory Therapy Evaluate & Treat Comment: Physician Instructions: Evaluate and treat 07/16/19 10:53 Consult to Occupational Therapy Evaluate & Treat Comment: Physician Instructions: Evaluate and treat Consult to Physical Therapy Evaluate & Treat Comment: Physician Instructions: Evaluate and Treat Discharge provider: Guillermo Willis PA-C Exam Vital Signs (past 8 hours): - 07/18/19 03:35 07/18/19 07:00 Temperature 99.9 F H 99.9 F H Pulse Rate 66 68 Respiratory Rate 16 14 Blood Pressure 142/77 H 159/90 H Pulse Oximetry 95 97 Oxygen Delivery Method Room Air Oxygen Flow Rate 0 Narrative Exam Narrative: Alert, oriented no acute distress sitting in chair. Back. Dressing to lumbar area is dry with small area of dried blood to lower dressing. No signs of infection or inflammation. Legs. No calf pain or swelling. Pulses symmetrical. He does have weakness with leg extension from sitting position. Objective Labs Result Diagrams: 07/17/19 06:03 Discharge Plan Discharge Plan Patient Disposition: SNF Transfer to: [facility] Under care of provider: Facility MD or PCP Discharge comment: f/u 1.5 wks Discharge Med Rec/Prescriptions Prescriptions: New acetaminophen 325 mg Tablet 650 mg PO Q6HR PRN (Reason: Pain, Mild (1-3)) Qty: 30 RF: 0 morphine 15 mg Tablet Extended Release 15 mg PO Q8H Qty: 60 RF: 0 morphine 15 mg Tablet 15 mg PO Q3H PRN (Reason: Pain, Severe (7-10)) Qty: 30 RF: 0 Continued vitamin B complex [B Complex-Vitamin B12] tablet 1 tab PO DAILY RF: 0 morphine [MS Contin] 15 MG tablet extended release 15 mg PO Q8H Qty: 0 RF: 0 cholecalciferol (vitamin D3) [Vitamin D3] 2,000 UNIT capsule 2,000 unit PO BID Qty: 0 RF: 0 [STOOL STOFTENER] 1 cap PO TID Qty: 0 RF: 0 morphine 15 MG tablet 15 mg PO PRN PRN (Reason: Pain) Qty: 0 RF: 0 clotrimazole-betamethasone [Lotrisone] 1-0.05 % cream 1 applictn TOP BID Qty: 15 RF: 0 lidocaine 5 % ointment 1 applictn TOP BID PRN (Reason: Pain) Qty: 30 RF: 0 magnesium 30 mg tablet 30 mg PO BID RF: 0 doxazosin 8 mg tablet 8 mg PO HS Qty: 90 RF: 1 finasteride 5 mg tablet 5 mg PO HS Qty: 90 RF: 1 duloxetine [Cymbalta] 30 mg capsule,delayed release(DR/EC) 60 mg PO QDAY Qty: 180 RF: 1 gabapentin [Neurontin] 400 mg capsule 400 mg PO QID Qty: 360 RF: 0 metoprolol tartrate 25 mg tablet 25 mg PO BID Qty: 180 RF: 1 baclofen 10 mg tablet 10 mg PO TID RF: 0 Follow up/Referrals: Maira Sotomayor DO [Primary Care Provider] - Discharge Health Status Brief summary of current health status: Patient had continued low back pain and leg symptoms. Underwent L3-4, L5-S1 laminectomies. Still having slow recovery and needing assist. Multidrug resistant organism: No MDRO Provider Discharge Instructions Diet: Diet as Tolerated Liquid consistency: Normal/Thin Food texture: Regular Activity: limited BLT 10 lbs max lift. No for forceful bending or twisting of lumbar spine. Ambulate as tolerated. Use walker as needed. Skin/Wound/Dressing Care Report to your healthcare provider any signs of infection, such as:: chills, fever, night sweats, increased pain, unusual drainage and unusual redness Dressing: may change dressing and shower POD#5 (Monday) [facility] Reason for rehabilitation: Post-operative therapy Rehab type: Physical therapy and Occupational therapy Restrictions to mobility: No forceful bending or twisting of lumbar spine. Visit Report/Discharge Packet Instructions: DI for Laminectomy Stand Alone Forms: Surgery Discharge Discharge Data Primary Care Provider: Maira Sotomayor
--- NOTE | 2019-07-18 10:25 | CM.DPNOTE ---
DCP: continued: Diana/[facility] called early this morning. Reports the auth for snf rehab at [facility] from [facility] has been received and they can accept pt today. Pt was updated and says he is pleased and relieved. Turner Willis is now putting in orders. PASRR: will completed, Fax to [facility], put to snf packet, give to [facility] to scan. ROCAEL Kearney is updated: [facility] can pick pt up 1300, w/c van. Will follow prn until pt. leaves.
[2019-07-18 11:00] VITALS: BP 116/68; PULSE 70; RESP 14; TEMP 36.9; O2SAT 95
--- NOTE | 2019-07-18 11:10 | PT.IPTN ---
Current Diagnoses Opioid dependence, uncomplicated (07/16/19) Spinal stenosis, lumbar region with neurogenic claudication (07/16/19) Surgery Performed Operation Date: 07/16/19 07:45 Actual Procedures p L3-4 & L5-S1 Laminectomies - Jamie Rivera MD Physical Therapy Treatment Note M2 PT-IP Current Condition Start: 07/16/19 12:08 Freq: NEEDED Status: Active Protocol: Document 07/16/19 13:25 AW (Rec: 07/16/19 14:00 AW [id number]) Physical Therapy Current Condition Current Condition Evaluation Date 07/16/19 Treatment Diagnosis s/p L3-4, L5-S1 lami, difficulty in walking Onset Date 07/16/19 Precautions Lumbar Precautions Log Roll,No Twisting,Limit Bending,Lifting Restriction of 10 lbs,Gait Belt above Incisional Area Other Precautions Pt typically uses AFO for RLE to compensate for R ankle clonus. Weight Bearing Status Weight Bearing Status Weight Bear as Tolerated M3 PT-IP Subjective Start: 07/16/19 12:08 Freq: NEEDED Status: Active Protocol: Document 07/18/19 11:10 GGD (Rec: 07/18/19 13:20 GGD [email or web address]) Subjective Physical Therapy Visit Type Type Treatment Note Visit Start Time 10:48 Visit Stop Time 11:08 Total Visit Minutes 20 Number of DIVIDING MACHINE OPERATOR HELPER Visits 1 Physical Therapy Visit Comments Patient Comments Pt would like to walk. M4 PT-IP Mobility and Gait Start: 07/16/19 12:08 Freq: NEEDED Status: Active Protocol: Document 07/18/19 11:10 GGD (Rec: 07/18/19 13:20 GGD [email or web address]) PT-Transfer Assessment Sit to and From Stand Sit to and from Stand Contact Guard Assistance,1 Person Assistance,Use of Upper Extremities Equipment Transfer Assistive Device Gait Belt,Front Wheeled Walker Orthotic/Prosthetic Devices or Brace: Yes Transfers Transfer Destination Chair Transfer Ability Level of Assist Minimal Assistance,1 Person Assistance,Use of Upper Extremities Gait Assessment Gait Gait Assistance Required: Minimum Assistance Distance (Feet) 50 Able to Maintain Weight Bearing Status Yes During Gait Assistive Devices Assistive Device Gait Belt,Front Wheeled Walker Orthotic/Prosthetic Devices or Brace: Yes Gait Deviations General Gait Pattern Antalgic,Decreased Stride Length,Decreased Feet Clearance Factors Limiting Gait Function Factors Limiting Gait Function Decreased Activity Tolerance, Decreased Sensation,Decreased Strength,Incoordination, Limited Range of Motion,Pain, Poor Balance,Poor Safety Awareness Comments Gait Comments Pt had left LE buckling and right toe catch with gait causing unsteadiness and LOB. M5 PT-IP Objective Assessments Start: 07/16/19 12:08 Freq: NEEDED Status: Active Protocol: Document 07/16/19 13:25 AW (Rec: 07/16/19 14:00 AW [id number]) Orientation Orientation/Cognition Level of Alertness Alert Orientation Name,Date,Place,Situation Language Function Ability No Deficits Noted Safety Awareness Understands Safety Issues Memory Description No Deficits Noted Gross Range of Motion Upper Extremity ROM Assessment Within Functional Limits Lower Extremity ROM Assessment Within Functional Limits Strength Upper Extremity Strength Assessment Within Functional Limits Lower Extremity Strength Assessment Right Impaired Hip 4+/5 Knee 5/5 Ankle 4/5 Coordination Assessment Gross Coordination Gross Coordination WNL Sensation Assessment Sensation Gross Sensation WNL Muscle Tone Muscle Tone WNL No Muscle Tone Location Right Lower Extremity Type of Tone Clonus Severity of Tone Moderate Manifistation of Tone Fluctuation Comments Muscle Tone Comments 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 AFO provides compensation M6 PT-IP Treatment Start: 07/16/19 12:08 Freq: NEEDED Status: Active Protocol: Document 07/18/19 11:10 GGD (Rec: 07/18/19 13:20 GGD [email or web address]) Physical Therapy Treatment Education Education Provided Precautions M7 PT-IP Assessment and Plan Start: 07/16/19 12:08 Freq: NEEDED Status: Active Protocol: Document 07/18/19 11:10 GGD (Rec: 07/18/19 13:20 GGD [email or web address]) PT Summary Assessment and Plan Summary Assessment Summary Pt improving with sit to stand mobility. He need min cues and CGA. He was unsteady with gait with FWW, with LE buckling and decrease foot clearance. Pt would benefit from SNF to improve functional mobility. Frequency of Treatment Frequency Of Treatment Twice a Day Treatment Plan Physical Therapy Treatment Plan Bed Mobility Training,Transfer Training,Gait Training, Therapeutic Exercise,Balance Retraining,Post Op Education, Discharge Planning,Hot or Cold Pack,Neuromuscular Re-ed, Coordination Retraining,Manual Therapy Recommendations To Nursing Amount of Assist Needed 1 Person Assist Discharge Recommendations PT Discharge Recommendations SNF Rehab
--- NOTE | 2019-07-18 11:43 | PC.NURSE ---
Day shift: ENERGY DIRECTOR came to this group underwriter at approx 1140 with report of BP 80/49. Put eyes on Pt and asked if he was dizzy or lightheaded. He reported that he was kind of light headed. BP taken again and it remained low but Pt asymptomatic with only c/o some lightheadedness. Pt was help to bed and placed with BLE's higher than his head. Will check BP again in approx 30 minutes. Call light in reach. BEd alarm on. Pt agrees to not get OOB w/o help from staff.
--- NOTE | 2019-07-18 11:47 | PC.NURSE ---
Day shift: Pt was also given PO Morphine per DEC and had just woken up from a nap when BP was taken. This note is r/t the note just written.
--- NOTE | 2019-07-18 11:50 | PC.NURSE ---
Day shift: BP taken again and BP 136/77 and asymptomatic. Will take again to make sure WNL 116/68.
--- NOTE | 2019-07-18 13:23 | PC.NURSE ---
Day shift: Pt left unit to SNF at approx 1320 with SNF transport to [facility]. Transport person has SNF packet. Pt has all personal belongings. MD scrips are with SNF packet. Report was called to [facility] RN. Pt voided standing just prior to d/c w/ no s/s of dizziness or light headedness.
== END 2019-07-18 13:26 | DRG 519 ==
LOC: OR 06:19 → AC 07-17 12:07
PROVIDERS: Admitting Provider Orthopaedic Surgery; PCP Family Medicine; Visit Provider Orthopaedic Surgery
PROC: 00NY0ZZ Release Lumbar Spinal Cord, Open Approach (ICD-10-PCS; principal; 2019-07-16 07:45)
DX: M48.062 Spinal stenosis, lumbar region with neurogenic claudication (principal); F11.20 Opioid dependence, uncomplicated; G47.33 Obstructive sleep apnea (adult) (pediatric); Z86.711 Personal history of pulmonary embolism; I10 Essential (primary) hypertension; E78.5 Hyperlipidemia, unspecified; G89.29 Other chronic pain
CPT/HCPCS: 36415; 72020; 76000; 85014; 85018; 94762; 97116; 97161; 97166; 97530; 97535; J0330; J0595; J0690; J1100; J1885; J2250; J2270; J2274; J2405; J2704; J3010

== ENCOUNTER 2019-07-20 18:59 | Emergency (ER) | payer OTHER, SELFPAY ==
[2019-07-16 11:47] VITALS: BMI 29.5
[2019-07-20 19:06] VITALS: BP 149/76; PULSE 69; RESP 48; TEMP 36.8; O2SAT 98
[2019-07-20] MEDS: diazePAM 10 MG/2 ML SYRINGE 5 MG IV (19:56)
[2019-07-20] MEDS: MORPHINE 4 MG/ML INJ IV ×3 (19:56→23:35)
[2019-07-20 19:58] VITALS: BP 127/74; PULSE 64; O2SAT 96
[2019-07-20 20:08] LABS: Add Manual Diff / Slide Review NO; Basophils Absolute Auto 0 /uL (0-100); Basophils Percent Auto 0.4 % (0-2); Eosinophils Absolute Auto 300 /uL (0-450); Hematocrit 37.8 % (41-53); Hemoglobin 12.5 g/dL (13.5-17.5); Lymphocytes Absolute Auto 1300 /uL (1100-4500); Lymphocytes Percent Auto 20.8 % (25-40); Mean Corpuscular HGB Conc 33.1 % (30-36); Mean Corpuscular Hemoglobin 28.5 PG (26-34); Mean Corpuscular Volume 86.1 fL (80-100); Monocytes Absolute Auto 700 /uL (0-900); Monocytes Percent Auto 10.4 % (3-14); Neutrophils Absolute Auto 4000 /uL (1500-7000); Neutrophils Percent Auto 63.4 % (50-75); Platelet Count 192 X10^3/uL (150-400); Red Cell Distribution Width 13.5 % (11.6-14.8); White Blood Cell Count 6.3 X10^3/uL (4.5-11.0)
[2019-07-20 20:21] LABS: BUN Creatinine Ratio 20.9 (6-22); Blood Urea Nitrogen 23 mg/dL (9-20); Calcium 8.8 mg/dL (8.4-10.2); Carbon Dioxide 32 mmol/L (22-32); Chloride 98 mmol/L (98-107); Estimated Glomerular Filt Rate > 60.0 mL/min (>60); Glucose 97 mg/dL (80-110); HEMOLYSIS < 15 (0-50); Potassium 4.1 mmol/L (3.4-5.1); Sodium 138 mmol/L (137-145)
--- NOTE | 2019-07-20 20:34 | DI.CT.S_ITS ---
PROCEDURE: CT LUMBAR SPINE W CON INDICATIONS: worsening pain after laminectomy L3-S1 5 days ago TECHNIQUE: After the administration of intravenous Isovue contrast, 3 mm thick sections acquired through the levels of interest. Sagittal and coronal reformats were then constructed. For radiation dose reduction, the following was used: automated exposure control. COMPARISON: [facility], MR, MR LUMBAR SPINE WITHOUT CONTRAST, 08/20/2018, 9:47. FINDINGS: Image quality: Excellent. Bones: Lumbar spine alignment is anatomic. No acute compression fracture is seen. Vertebral body heights are well-preserved. There is no spondylolisthesis. No suspicious intraosseous lesion. T12-L1: Within normal limits. L1-2: Within normal limits. L2-3: Mild broad-based disc bulge and bilateral facet arthrosis is seen with mild central canal stenosis, no significant neuroforaminal narrowing. L3-4: Patient is status post right laminectomy. Bilateral facet arthrosis is seen. No significant central canal stenosis. There is suggestion of diffuse disc bulge and mild bilateral neuroforaminal narrowing. No enhancing soft tissue mass or fluid collection is seen. L4-5: Broad-based disc bulge and bilateral facet arthrosis is seen with moderate central canal stenosis and bilateral neuroforaminal narrowing. L5-S1: There is broad-based disc bulge and bilateral facet arthrosis. Post right laminectomy changes are noted at this level with no gross abnormal enhancing soft tissue mass or fluid collection. There is possible granulation tissue in right laminectomy site causing narrowing of right neural recess at this level. No significant central canal stenosis. No significant neuroforaminal narrowing. Soft tissues: No paraspinous soft tissue fluid collection or hematoma. Atherosclerotic ossifications in visualized lumbar spine is seen. Bilateral kidneys show no hydronephrosis. Visualized portion of urinary bladder show no gross abnormality. IMPRESSION: 1. Post right laminectomy changes at L5-S1 level with prominent granulation tissues causing narrowing of right neural recess. No enhancing soft tissue mass or fluid collection. Bilateral facet arthrosis and broad-based disc bulge at L5-S1 level is also seen. No significant intracranial stenosis. 2. Prior right laminectomy at L3-4 level. Diffuse disc bulge and bilateral facet arthrosis with mild bilateral neuroforaminal narrowing. No significant central canal stenosis. 3. Degenerative disc bulge and bilateral facet arthrosis at L2-3 and L4-5 levels with mild to moderate central canal stenosis and bilateral neuroforaminal narrowing at L4-5 level. 4. No acute compression fracture or spondylolisthesis. No area of abnormal enhancement. Dictated by: Derek Andersen M.D. on 07/20/2019 at 21:43 Approved by: Derek Andersen M.D. on 07/20/2019 at 21:51
--- NOTE | 2019-07-20 21:02 | ED.BACK ---
HPI - Back Pain/Injury <MARBELLA Orellana - Last Filed: 07/20/19 23:13> General Chief Complaint: Back Pain/Injury Stated Complaint: sp lami / neck & back pain. Time Seen by Provider: 07/20/19 19:01 Source: patient and EMS Mode of arrival: EMS Limitations: no limitations History of Present Illness HPI Narrative: This is a 63-year-old gentleman, nonsmoker, who was brought in by [facility] paramedics from the [facility] with worsening low back pain that radiates to his right anterior knee. Patient had s/p L3-L4 laminectomy and L5-S1 hemifacetectomy 4 days ago at [facility] by Dr. Rivera with history of back pain from stenosis and radiculopathy down to his foot. Patient reports, after the surgery his sciatica was significantly improved until last. Patient had recurring severe pain after care facility staff trying to reposition him using a draw ship and accidentally dropped the patient above 6 inch and onto on locked bed and the bed hit the wall and had some jerking movements. Patient reports he could not breathe due to pain for about a month after this. Today he noticed recurring sciatica and pain has been difficult to manage with his current pain medication regimen with morphine extended and immediate release. Patient reports any little movements increases pain. Patient started physical therapy sessions and had a PT session hard yesterday. Patient denies fever, chills, nausea or vomiting. Reports no bowel movement since the surgery and currently using medications for bowel movement regimen. Patient denies urinary incontinence since the surgery. Related Data Home Medications Medication Instructions Recorded Confirmed [STOOL STOFTENER] 1 cap PO TID #0 07/10/17 07/16/19 cholecalciferol (vitamin D3) 2,000 unit PO BID #0 07/10/17 07/16/19 [Vitamin D3] morphine [MS Contin] 15 mg PO Q8H #0 07/10/17 07/16/19 morphine 15 mg PO PRN PRN #0 11/28/17 07/16/19 vitamin B complex 1 tab PO DAILY 03/06/18 07/16/19 magnesium 30 mg tablet 30 mg PO BID 05/27/19 07/16/19 baclofen 10 mg PO TID 07/16/19 07/16/19 Previous Rx's Medication Instructions Recorded clotrimazole-betamethasone 1 1 applictn TOP BID #15 gram 09/19/18 %-0.05 % topical cream lidocaine 5 % topical ointment 1 applictn TOP BID PRN #30 gram 03/06/19 doxazosin 8 mg tablet 8 mg PO HS #90 tab 05/27/19 duloxetine 30 mg capsule,delayed 60 mg PO QDAY #180 cap 05/27/19 release finasteride 5 mg tablet 5 mg PO HS #90 tab 05/27/19 gabapentin 400 mg capsule 400 mg PO QID #360 cap 05/27/19 metoprolol tartrate 25 mg tablet 25 mg PO BID #180 tab 05/27/19 acetaminophen 650 mg PO Q6HR PRN #30 tab 07/18/19 morphine 15 mg PO Q3H PRN #30 tab 07/18/19 morphine 15 mg PO Q8H #60 tab 07/18/19 Allergies Allergy/AdvReac Type Severity Reaction Status Date / Time venom-honey bee Allergy Severe ANAPHYLACTIC Verified 07/20/19 19:08 [BEE VENOM (HONEY BEE)] REACTION (BUMBLE BEE) adhesive tape AdvReac Intermediate redness Verified 07/20/19 19:08 Review of Systems <MARBELLA Orellana - Last Filed: 07/20/19 23:13> Review of Systems Narrative: General: Denies fever, chills, fatigue, malaise, sweats. HEENT: Denies sinus pain, ear pain, sore throat, difficulty swallowing, dizziness. Respiratory: Denies dyspnea, cough, wheezing, hemoptysis, sputum. Cardiovascular: Denies chest pain, palpitations, orthopnea, edema. Gastrointestinal: Reports constipation. Denies nausea, vomiting, abdominal pain, diarrhea, melena. : Denies dysuria, frequency, incontinence, hematuria, urinary retention. Musculoskeletal: See HPI. Skin: Denies rash, skin lesions, or other. Neurologic: Denies weakness, headache, numbness, change in speech, confusion, seizures, incoordination. Psychiatric: No concerning psychosocial issues. 12-point review of systems is negative except for those stated above. PFSH <MARBELLA Orellana - Last Filed: 07/20/19 23:13> Medical History Acute medial meniscus tear of left knee (Acute) Anxiety (Chronic) BPH (benign prostatic hyperplasia) (Chronic) Cholecystitis (Acute) Chronic back pain (Chronic) Chronic neck pain (Chronic) Depression (Chronic) Disc disease with myelopathy, lumbar (Acute) GERD (gastroesophageal reflux disease) (Chronic) Gout (Chronic) History of bleeding ulcers (Acute ~1990) History of EKG (Acute) History of fall (Acute) History of migraine (Acute) History of pyelonephritis (Acute) History of sepsis (Acute ~11/2017) Hyperlipemia (Chronic) Hypertension (Chronic) Neuropathy of both upper extremities (Acute) Plantar fasciitis (Resolved) Pulmonary emboli (Acute ~12/15/17) Sleep apnea (Chronic) Tinea corporis (Acute) Tinnitus (Acute) Urethral stone (Resolved ~11/2017) Weight loss, intentional (Acute) Surgical History History of laminectomy (Acute) History of mandibular surgery (Resolved) History of meniscectomy of left knee (Acute) History of orchiectomy (Acute ~06/2016) History of surgery on arm (Resolved) History of vasectomy Hx of Achilles tendon repair (Resolved) Hx of eye surgery (Resolved) Hx of knee surgery (Resolved) Hx of lithotripsy (Acute) Hx of neck surgery (Resolved) Hx of shoulder surgery (Resolved) Hx of thumb surgery (Resolved) Status post appendectomy Family History Brother Heart disease Father Heart disease Mother Heart disease Diabetes mellitus High cholesterol Sister Heart disease Sister Heart disease Social History household members: spouse Smoking Status: Never smoker second hand exposure: No alcohol intake: former substance use type: does not use Family History Brother Heart disease Father Heart disease Mother Heart disease Diabetes mellitus High cholesterol Sister Heart disease Sister Heart disease Social History household members: spouse Smoking Status: Never smoker second hand exposure: No alcohol intake: former substance use type: does not use Exam <MARBELLA Orellana - Last Filed: 07/20/19 23:13> Narrative Exam Narrative: GEN: Alert, oriented x 3, well appearing and nourished, and in no acute distress. Head: Normal cephalic, atraumatic. No scalp or temporal tenderness, palpable mass or rash. EYES: Pupils are equal, round, and reactive to light and accommodation. Extraocular muscles are intact bilaterally. There is no subconjunctival hemorrhage, exudate and sclera non-icteric. ENT: Bilateral auditory canals and tympanic membranes clear. Hearing grossly intact. Nose without bleeding, purulent discharge or deviation. Facial sinuses nontender to palpate. Mucous membrane moist, no mucosal lesion. Throat without erythema, tonsillar hypertrophy or exudate. Uvula in midline, airway patent. Neck: Trachea in midline. No JVD, non-tender without lymphadenopathy. No masses or thyroid megaly. Supple, non-tender and no meningeal signs. CARDIAC: Normal regular rate and rhythm without murmurs, gallops, or rubs. No chest wall tenderness. No peripheral edema, cyanosis or pallor. Capillary refill is less than 2 seconds. RESPIRATORY: Lungs are cleat to auscultate bilaterally. No cough, wheezes, rales, or rhonchi. No stridor, respiratory distress, increase work of breathing, or accessary muscle used. ABD: Left quadrant discomfort with palpation and reports this is chronic. Abdomen soft and non-distended. No guarding or rebound tenderness to palpate. Bowel sounds are normal in all 4 quadrants. There is no palpable masses or organomegaly. EXT: Full painless ROM of all extremities with no loss of sensation, strength, effusion or edema. SKIN: about 2cm bulla on L side surgical site possibly from the adhesive tape. No erythema, warmth, edema noted on surgical site. Warm, dry, normal color for patient. No erythema, lesions or rash over other visible areas. NEUROLOGICAL: Alert and oriented to place, time and person. Sensation and motor function intact bilaterally. No facial droops, dysphasia. PSYCHIATRIC: Good judgement and reason, without hallucinations, abnormal affect or abnormal behaviors during the examination. Initial Vital Signs Initial Vital Signs: Vital Signs Temperature 98.2 F 07/20/19 19:06 Pulse Rate 69 07/20/19 19:06 Respiratory Rate 48 H 07/20/19 19:06 Blood Pressure 149/76 H 07/20/19 19:06 Pulse Oximetry 98 07/20/19 19:06 Back/Spine/Pelvis Cervical Spine: pain with cervical ROM (history of surgery in C-spine, uses cervical support while his in bed.) Thoracic/Lumbar Spine: surgical scar(s) present (Covered with dressing), No mass, pain with thoraco-lumbar ROM, paraspinal tenderness, thoraco-lumbar ROM limited (Due to discomfort), straight leg raise positive (Bilaterally, Worse on the right side lower extremity) and other (rectal tone intact) <Terri Callaway DO - Last Filed: 07/21/19 06:29> Initial Vital Signs Initial Vital Signs: Vital Signs Temperature 98.2 F 07/20/19 19:06 Pulse Rate 69 07/20/19 19:06 Respiratory Rate 48 H 07/20/19 19:06 Blood Pressure 149/76 H 07/20/19 19:06 Pulse Oximetry 98 07/20/19 19:06 Course <MARBELLA Orellana - Last Filed: 07/20/19 23:13> Orders Ordered: Discontinued Medications Diazepam (Valium) 5 mg IV NOW ONE Stop: 07/20/19 19:24 Last Admin: 07/20/19 19:56 Dose: 5 mg Documented by: BARRIE Morphine Sulfate (Morphine) 4 mg IV NOW ONE Stop: 07/20/19 19:24 Last Admin: 07/20/19 19:56 Dose: 4 mg Documented by: BARRIE Morphine Sulfate (Morphine) 4 mg IV NOW ONE Stop: 07/20/19 21:37 Last Admin: 07/20/19 22:02 Dose: 4 mg Documented by: BARRIE Morphine Sulfate (Morphine) 4 mg IV NOW PRN PRN Reason: Pain, Severe (7-10) Last Admin: 07/20/19 23:35 Dose: 4 mg Documented by: MONIE Vital Signs Vital signs: Vital Signs - 8 hr 07/20/19 23:46 Pulse Rate 68 Respiratory Rate 18 Blood Pressure 122/68 Pulse Oximetry 96 <Terri Callaway DO - Last Filed: 07/21/19 06:29> Orders Ordered: Discontinued Medications Diazepam (Valium) 5 mg IV NOW ONE Stop: 07/20/19 19:24 Last Admin: 07/20/19 19:56 Dose: 5 mg Documented by: BARRIE Morphine Sulfate (Morphine) 4 mg IV NOW ONE Stop: 07/20/19 19:24 Last Admin: 07/20/19 19:56 Dose: 4 mg Documented by: BARRIE Morphine Sulfate (Morphine) 4 mg IV NOW ONE Stop: 07/20/19 21:37 Last Admin: 07/20/19 22:02 Dose: 4 mg Documented by: BARRIE Morphine Sulfate (Morphine) 4 mg IV NOW PRN PRN Reason: Pain, Severe (7-10) Last Admin: 07/20/19 23:35 Dose: 4 mg Documented by: MONIE Vital Signs Vital signs: Vital Signs - 8 hr 07/20/19 23:46 Pulse Rate 68 Respiratory Rate 18 Blood Pressure 122/68 Pulse Oximetry 96 MDM - Back Pain/Injury <Julio César MARBELLA Cummins - Last Filed: 07/20/19 23:13> Differential Diagnosis Differential diagnosis: Likely lumbar radiculopathy, strain of lumbar region, discitis and other (Injury to surgical site in L spine) Medical Records Attestation: I reviewed the patient's medical records. Lab Data Result diagrams: 07/20/19 19:53 07/20/19 19:53 Labs: Lab Results 07/20/19 07/20/19 Range/Units 19:53 19:53 WBC 6.3 (4.5-11.0) X10^3/uL RBC 4.40 L (4.5-5.9) X10^6/uL Hgb 12.5 L (13.5-17.5) g/dL Hct 37.8 L (41-53) % MCV 86.1 (80-100) fL MCH 28.5 (26-34) PG MCHC 33.1 (30-36) % RDW 13.5 (11.6-14.8) % Plt Count 192 (150-400) X10^3/uL Neut % (Auto) 63.4 (50-75) % Lymph % (Auto) 20.8 L (25-40) % Tompkins % (Auto) 10.4 (3-14) % Eos % (Auto) 5.0 H (2-4) % Baso % (Auto) 0.4 (0-2) % Neut # (Auto) 4000 (3745-3031) /uL Lymph # (Auto) 1300 (8784-3706) /uL Tompkins # (Auto) 700 (0-900) /uL Eos # (Auto) 300 (0-450) /uL Baso # (Auto) 0 (0-100) /uL Sodium 138 (137-145) mmol/L Potassium 4.1 (3.4-5.1) mmol/L Chloride 98 (98-107) mmol/L Carbon Dioxide 32 (22-32) mmol/L BUN 23 H (9-20) mg/dL Creatinine 1.10 (0.66-1.25) mg/dL Estimated GFR > 60.0 (>60) mL/min BUN/Creatinine Ratio 20.9 (6-22) Glucose 97 (80-110) mg/dL Calcium 8.8 (8.4-10.2) mg/dL Imaging Data CT- Lumbar spine : Radiologist's impression: [place] [address] CT Scan Report Signed Patient: Arley Mathews Jr LMR#: [id number] : 6Acct:[id number] Age/Sex: 63 / MDate of Service: 07/20/19 Loc: ED Accession Number: [id number] Procedure: CT lumbar spine w con Ordering Provider: Julio César Cummins PROCEDURE: CT LUMBAR SPINE W CON INDICATIONS: worsening pain after laminectomy L3-S1 5 days ago TECHNIQUE: After the administration of intravenous Isovue contrast, 3 mm thick sections acquired through the levels of interest. Sagittal and coronal reformats were then constructed. For radiation dose reduction, the following was used: automated exposure control. COMPARISON: [facility], MR, MR LUMBAR SPINE WITHOUT CONTRAST, 08/20/2018, 9:47. FINDINGS: Image quality: Excellent. Bones: Lumbar spine alignment is anatomic. No acute compression fracture is seen. Vertebral body heights are well-preserved. There is no spondylolisthesis. No suspicious intraosseous lesion. T12-L1: Within normal limits. L1-2: Within normal limits. L2-3: Mild broad-based disc bulge and bilateral facet arthrosis is seen with mild central canal stenosis, no significant neuroforaminal narrowing. L3-4: Patient is status post right laminectomy. Bilateral facet arthrosis is seen. No significant central canal stenosis. There is suggestion of diffuse disc bulge and mild bilateral neuroforaminal narrowing. No enhancing soft tissue mass or fluid collection is seen. L4-5: Broad-based disc bulge and bilateral facet arthrosis is seen with moderate central canal stenosis and bilateral neuroforaminal narrowing. L5-S1: There is broad-based disc bulge and bilateral facet arthrosis. Post right laminectomy changes are noted at this level with no gross abnormal enhancing soft tissue mass or fluid collection. There is possible granulation tissue in right laminectomy site causing narrowing of right neural recess at this level. No significant central canal stenosis. No significant neuroforaminal narrowing. Soft tissues: No paraspinous soft tissue fluid collection or hematoma. Atherosclerotic ossifications in visualized lumbar spine is seen. Bilateral kidneys show no hydronephrosis. Visualized portion of urinary bladder show no gross abnormality. IMPRESSION: 1. Post right laminectomy changes at L5-S1 level with prominent granulation tissues causing narrowing of right neural recess. No enhancing soft tissue mass or fluid collection. Bilateral facet arthrosis and broad-based disc bulge at L5-S1 level is also seen. No significant intracranial stenosis. 2. Prior right laminectomy at L3-4 level. Diffuse disc bulge and bilateral facet arthrosis with mild bilateral neuroforaminal narrowing. No significant central canal stenosis. 3. Degenerative disc bulge and bilateral facet arthrosis at L2-3 and L4-5 levels with mild to moderate central canal stenosis and bilateral neuroforaminal narrowing at L4-5 level. 4. No acute compression fracture or spondylolisthesis. No area of abnormal enhancement. Dictated by: Derek Andersen M.D. on 07/20/2019 at 21:43 Approved by: Derek Andersen M.D. on 07/20/2019 at 21:51 [facility] Narrative Medical decision making narrative: This is 63-year-old gentleman had status post laminectomy and hemifacetectomy on L3-L4 and L5-S1 [address] Rivera and is currently recuperating and started physical therapy at [facility]. Inadvertentely, during repositioning the patient by the staff member, he was dropped from 6 in above the bed with severe jerked movement after the bed got slammed on the wall. Since then, patient was having increasing pain on his right side low back radiating to right anterior above knee. Patient states he was able to get out of bed today but little movements increases his pain. The patient had equal bilateral strength in lower extremities with sensation, no bladder incontinence, positive rectal tone, denies constitutional symptoms. No leukocytosis seen today. Lumbar CT test was obtained and indicates no acute compression fracture, spondylolisthesis, soft tissue mass or fluid collection. Also, it showed post right laminectomy changes at L5 through S1 level with prominent granulation tissues causing narrowing of right neural recess. Dr. Alegre was consulted over the phone regarding this findings and he kindly suggested patient to follow with his spine surgeon this coming week with strict return precautions such as neurological/strength deficit or fever. The findings were shared with the patient and patient agrees with the treatment plan. There is no further questions expressed at this time. Patient was treated with a few doses of morphine 4 mg each time and 5 mg Valium while in ED for his discomfort. BLS transfer was arranged for transportation to [facility]. <Terri Callaway, DO - Last Filed: 07/21/19 06:29> Lab Data Attestation: I reviewed the patient's lab results. Labs: Lab Results 07/20/19 07/20/19 Range/Units 19:53 19:53 WBC 6.3 (4.5-11.0) X10^3/uL RBC 4.40 L (4.5-5.9) X10^6/uL Hgb 12.5 L (13.5-17.5) g/dL Hct 37.8 L (41-53) % MCV 86.1 (80-100) fL MCH 28.5 (26-34) PG MCHC 33.1 (30-36) % RDW 13.5 (11.6-14.8) % Plt Count 192 (150-400) X10^3/uL Neut % (Auto) 63.4 (50-75) % Lymph % (Auto) 20.8 L (25-40) % Tompkins % (Auto) 10.4 (3-14) % Eos % (Auto) 5.0 H (2-4) % Baso % (Auto) 0.4 (0-2) % Neut # (Auto) 4000 (7487-9477) /uL Lymph # (Auto) 1300 (2888-3633) /uL Tompkins # (Auto) 700 (0-900) /uL Eos # (Auto) 300 (0-450) /uL Baso # (Auto) 0 (0-100) /uL Sodium 138 (137-145) mmol/L Potassium 4.1 (3.4-5.1) mmol/L Chloride 98 (98-107) mmol/L Carbon Dioxide 32 (22-32) mmol/L BUN 23 H (9-20) mg/dL Creatinine 1.10 (0.66-1.25) mg/dL Estimated GFR > 60.0 (>60) mL/min BUN/Creatinine Ratio 20.9 (6-22) Glucose 97 (80-110) mg/dL Calcium 8.8 (8.4-10.2) mg/dL Imaging Data CT lumbar spine: Radiologist's impression: [address] [address] [address] Scan Report Signed Patient: Arley Mathews Jr LMR#: [id number] : 6Acct:[id number] Age/Sex: 63 / MDate of Service: 07/20/19 Loc: ED Accession Number: [id number] Procedure: CT lumbar spine w con Ordering Provider: Julio César Cummins PROCEDURE: CT LUMBAR SPINE W CON INDICATIONS: worsening pain after laminectomy L3-S1 5 days ago TECHNIQUE: After the administration of intravenous Isovue contrast, 3 mm thick sections acquired through the levels of interest. Sagittal and coronal reformats were then constructed. For radiation dose reduction, the following was used: automated exposure control. COMPARISON: [facility], MR, MR LUMBAR SPINE WITHOUT CONTRAST, 08/20/2018, 9:47. FINDINGS: Image quality: Excellent. Bones: Lumbar spine alignment is anatomic. No acute compression fracture is seen. Vertebral body heights are well-preserved. There is no spondylolisthesis. No suspicious intraosseous lesion. T12-L1: Within normal limits. L1-2: Within normal limits. L2-3: Mild broad-based disc bulge and bilateral facet arthrosis is seen with mild central canal stenosis, no significant neuroforaminal narrowing. L3-4: Patient is status post right laminectomy. Bilateral facet arthrosis is seen. No significant central canal stenosis. There is suggestion of diffuse disc bulge and mild bilateral neuroforaminal narrowing. No enhancing soft tissue mass or fluid collection is seen. L4-5: Broad-based disc bulge and bilateral facet arthrosis is seen with moderate central canal stenosis and bilateral neuroforaminal narrowing. L5-S1: There is broad-based disc bulge and bilateral facet arthrosis. Post right laminectomy changes are noted at this level with no gross abnormal enhancing soft tissue mass or fluid collection. There is possible granulation tissue in right laminectomy site causing narrowing of right neural recess at this level. No significant central canal stenosis. No significant neuroforaminal narrowing. Soft tissues: No paraspinous soft tissue fluid collection or hematoma. Atherosclerotic ossifications in visualized lumbar spine is seen. Bilateral kidneys show no hydronephrosis. Visualized portion of urinary bladder show no gross abnormality. IMPRESSION: 1. Post right laminectomy changes at L5-S1 level with prominent granulation tissues causing narrowing of right neural recess. No enhancing soft tissue mass or fluid collection. Bilateral facet arthrosis and broad-based disc bulge at L5-S1 level is also seen. No significant intracranial stenosis. 2. Prior right laminectomy at L3-4 level. Diffuse disc bulge and bilateral facet arthrosis with mild bilateral neuroforaminal narrowing. No significant central canal stenosis. 3. Degenerative disc bulge and bilateral facet arthrosis at L2-3 and L4-5 levels with mild to moderate central canal stenosis and bilateral neuroforaminal narrowing at L4-5 level. 4. No acute compression fracture or spondylolisthesis. No area of abnormal enhancement. Dictated by: Derek Andersen M.D. on 07/20/2019 at 21:43 Approved by: Derek Andersen M.D. on 07/20/2019 at 21:51 [facility] Narrative Medical decision making narrative: Patient's labs, imaging history reviewed with the nurse practitioner. Patient has not had any acute neurologic changes. There is granulation tissue noted and this was discussed with Orthopedic surgery who recommends short-term follow-up with Dr. casey who is his surgeon that performed his procedure. Patient's pain has improved in the department, no emergent neurologic findings at this time. Discharge Plan Departure Patient Disposition: Home Clinical Impression: Back pain with history of spinal surgery, History of lumbar laminectomy Discharge Date/Time: 07/20/19 23:47 Instructions: DI for Back Pain With Sciatica Activity Restrictions/Additional Instructions: You have been diagnosed with [back pain after this laminectomy surgery after jerking movements/injury done during transferring in bed. According to CT test in lumbar today, there was no acute compression fractures, no soft tissue mass or fluid collection was seen. However, he showed L5 through S1 level with prominent granulation tissues causing narrowing of right neural recess which could be from healing process]. What to do: *Take your medications as directed. Please continue with her current medication regimen for pain. *Follow up with Dr. Rivera in 2-3 days, call for an appointment. Let them know you were seen in the ED and that we asked you to be seen in follow up. *Return to ED if you have any new, worsening, or concerning symptoms, such as [weakness, incontinence for stool and bladder, fever, redness/warmth/drainage from surgical site, increasing tingling or numbness to lower extremities, groin numbness, chest pain, breathing difficulty, unable to tolerate fluids or any acute concerns]. Prescriptions: No Action vitamin B complex [B Complex-Vitamin B12] tablet 1 tab PO DAILY RF: 0 morphine [MS Contin] 15 MG tablet extended release 15 mg PO Q8H Qty: 0 RF: 0 cholecalciferol (vitamin D3) [Vitamin D3] 2,000 UNIT capsule 2,000 unit PO BID Qty: 0 RF: 0 [STOOL STOFTENER] 1 cap PO TID Qty: 0 RF: 0 morphine 15 MG tablet 15 mg PO PRN PRN (Reason: Pain) Qty: 0 RF: 0 clotrimazole-betamethasone [Lotrisone] 1-0.05 % cream 1 applictn TOP BID Qty: 15 RF: 0 lidocaine 5 % ointment 1 applictn TOP BID PRN (Reason: Pain) Qty: 30 RF: 0 magnesium 30 mg tablet 30 mg PO BID RF: 0 doxazosin 8 mg tablet 8 mg PO HS Qty: 90 RF: 1 finasteride 5 mg tablet 5 mg PO HS Qty: 90 RF: 1 duloxetine [Cymbalta] 30 mg capsule,delayed release(DR/EC) 60 mg PO QDAY Qty: 180 RF: 1 gabapentin [Neurontin] 400 mg capsule 400 mg PO QID Qty: 360 RF: 0 metoprolol tartrate 25 mg tablet 25 mg PO BID Qty: 180 RF: 1 baclofen 10 mg tablet 10 mg PO TID RF: 0 acetaminophen 325 mg Tablet 650 mg PO Q6HR PRN (Reason: Pain, Mild (1-3)) Qty: 30 RF: 0 morphine 15 mg Tablet Extended Release 15 mg PO Q8H Qty: 60 RF: 0 morphine 15 mg Tablet 15 mg PO Q3H PRN (Reason: Pain, Severe (7-10)) Qty: 30 RF: 0 Referrals: Jamie Rivera MD [Physician] - Maira Sotomayor DO [Primary Care Provider] -
[2019-07-20 23:46] VITALS: BP 122/68; PULSE 68; RESP 18; O2SAT 96
== END 2019-07-20 23:47 | disposition home or self-care (01) ==
PROVIDERS: Emergency Provider Nurse Practitioner Family; PCP Family Medicine
DX: M54.9 Dorsalgia, unspecified (principal); Z98.890 Other specified postprocedural states
CPT/HCPCS: 36415; 72132; 80048; 85025; 96374; 96375; 96376; 99282; 99284; J2270; J3360; Q9967

== ENCOUNTER → 2019-11-19 13:56 | Outpatient (CLI) | payer OTHER, SELFPAY ==
[2019-07-16 11:47] VITALS: BMI 29.5
--- NOTE | 2019-11-19 13:58 | DI.RAD.S_ITS ---
PROCEDURE: XR KNEE LT 3V INDICATIONS: Progressive left knee pain after fall TECHNIQUE: 3 views of the knee were acquired. COMPARISON: [facility], CR, XR KNEE LT 3V, 01/23/2019, 17:27. FINDINGS: Bones: No fractures or dislocations. No suspicious bony lesions. Unicompartmental medial arthroplasty. Expected postoperative alignment. No evidence of hardware failure or loosening Soft tissues: Small joint effusion. No suspicious soft tissue calcifications. Moderate anterior soft tissue swelling. IMPRESSION: Expected postoperative alignment. No fracture. Mild anterior soft tissue swelling. Dictated by: Osman Peterson M.D. on 11/19/2019 at 16:10 Approved by: Osman Peterson M.D. on 11/19/2019 at 16:11
== END ==
PROVIDERS: PCP Family Medicine; Visit Provider Family Medicine
DX: M25.562 Pain in left knee (principal); M79.89 Other specified soft tissue disorders
CPT/HCPCS: 73562

== ENCOUNTER → 2020-05-08 14:11 | Outpatient (CLI) | payer OTHER, SELFPAY ==
[2019-07-16 11:47] VITALS: BMI 29.5
--- NOTE | 2020-05-08 14:12 | DI.RAD.S_ITS ---
PROCEDURE: XR FOOT LT MIN 3V INDICATIONS: Progressive left lateral foot pain TECHNIQUE: 3 nonweightbearing views of the foot were acquired. COMPARISON: Left knee radiographs dated 07/11/2014. FINDINGS: Bones: No fractures or dislocations. No suspicious bony lesions. A congenitally bipartite medial hallux sesamoid is noted. Small posterior and plantar calcaneal spurs are seen. Soft tissues: No tibiotalar joint effusion. Achilles tendon appears normal. IMPRESSION: No acute radiographic abnormality. If symptoms persist with conservative treatment, an MRI or CT may be obtained for further evaluation. Dictated by: Yair Aguilar M.D. on 05/08/2020 at 15:35 Approved by: Yair Aguilar M.D. on 05/08/2020 at 15:37
== END ==
PROVIDERS: PCP Family Medicine; Referring Provider Family Medicine; Visit Provider Family Medicine
DX: M79.672 Pain in left foot (principal)
CPT/HCPCS: 73630